=== PATIENT | female | born 1960 | race Caucasian/White ===

== ENCOUNTER → 2020-03-27 | Outpatient (CLI) | payer OTHER ==
--- NOTE | 2020-03-28 08:54 | MM ---
Reason for exam: clinical finding. History: Patient is postmenopausal and history of other cancer. Physical Findings: Nurse Summary: 2.5cm nodule in the right breast at 10 o'clock (nurse dw). MG Diagnostic Mammo w CAD ELADIO Bilateral CC, MLO, and XCCL view(s) were taken. There are scattered fibroglandular densities. 2.7 x 2.7 x 2.5cm irregular, high density mass 9 o'clock right breast at the nurse palpated site. These results were verbally communicated with the patient and result sheet given to the patient on 03/27/20. ASSESSMENT: Incomplete: need additional imaging evaluation, BI-RAD 0 RECOMMENDATION: Ultrasound of the right breast.
--- NOTE | 2020-03-28 08:57 | USB ---
Reason for exam: additional evaluation requested from abnormal screening. History: Patient is postmenopausal and history of other cancer. US Breast RT Right complete breast ultrasound includes all four quadrants, the retroareolar region and axilla. Finding demonstrates a 2.9 x 1.9 x 2.3cm angular, irregular, solid lesion with echogenic halo at 9 o'clock, no other solid or cystic lesion. No axillary lymphadenopathy. These results were verbally communicated with the patient and result sheet given to the patient on 03/27/20. ASSESSMENT: Highly suggestive of malignancy, BI-RAD 5 RECOMMENDATION: Surgical consultation and ultrasound core biopsy of the right breast. Called Dr. Underwood's office with mammographic findings and has scheduled an appointment for the patient for 03/31/20 at 12:[address] Roberts. Biopsy scheduled for 03/31/20 at 8:00. PRELIMINARY REPORT CALLED AND FAXED TO DR. ROBERTS ON 03/28/20.
== END | disposition home or self-care (01) ==
LOC: RADMAMWWP 08:39
PROVIDERS: ATTEND Student in an Organized Health Care Education/Training Program
DX: D48.61 Neoplasm of uncertain behavior of right breast (principal); R92.8 Other abnormal and inconclusive findings on diagnostic imaging of breast
CPT/HCPCS: 77066

== ENCOUNTER 2020-04-02 21:05 | Inpatient (IN) | payer OTHER ==
--- NOTE | 2020-04-02 21:38 | ED ---
General Adult HPI - General Chief complaint: Shortness of Breath Stated complaint: SOB,vomiting Time Seen by Provider: 04/02/20 21:18 Source: patient Mode of arrival: ambulatory Limitations: no limitations - History of Present Illness Initial comments: Dictation was produced using [employer] dictation software. please excuse any grammatical, word or spelling errors. This patient was cared for during a federal and state declared state of emergency secondary to Covid 19 Chief Complaint: 59-year-old female with currently being worked up for possible breast cancer and lung cancer presents with shortness of breath. History of Present Illness: Patient's 59-year-old female presents today with shortness of breath. Patient states her symptoms began acutely last week. Patient states her symptoms have been getting worse. Patient states she has redness of breath is especially worse with exertion. She usually very active. Patient is also short of breath at rest. Patient has any pain complaints. Denies any lower extremity swelling or pain. Patient denies any history of blood clots. Patient does not have a history of heart failure. She does however have a history of coronary artery disease. Denies any fever, chills or night sweats patient does have a mild dry nonproductive cough. She was seen at [facility] where she had a CT test performed. To their knowledge the abnormalities that was seen was that she did have some nodules noted on the right lung. The ROS documented in this emergency department record has been reviewed and confirmed by me. Those systems with pertinent positive or negative responses have been documented in the HPI. All other systems are other negative and/or noncontributory. PHYSICAL EXAM: General Impression: Alert and oriented x3, not in acute distress HEENT: Normocephalic atraumatic, extra-ocular movements intact, pupils equal and reactive to light bilaterally, mucous membranes moist. Cardiovascular: Heart regular rate and rhythm Chest: Diminished right lung sounds Abdomen: abdomen soft, non-tender, non-distended, no organomegaly Musculoskeletal: Pulses present and equal in all extremities, no peripheral edema Motor: no focal deficits noted Neurological: CN II-XII grossly intact, no focal motor or sensory deficits noted Skin: Intact with no visualized rashes Psych: Normal affect and mood ED course: 59-year-old female with active evaluation of possible lung cancer presents with acute dyspnea for 7 days. Sans upon arrival shows 94% on room air, rest of vital signs within acceptable limits. EKG does not show sinus tachycardia or any abnormalities. CT angios the chest was obtained read demonstrating multiple pulmonary masses. Laboratory evaluation obtained. Leukocytosis of 18.6. Coag panel unremarkable. Patient has elevated d-dimer 1.14. Rest of labs unremarkable. Troponin is negative. There is no evidence of pulmonary embolism. There does appear to be some infiltrates concerning for pneumonia. Patient's breathing difficulties are likely multifactorial. Patient will be treated with antibiotics for community acquired pneumonia. Patient be admitted with consultation to pulmonology and oncology. EKG interpretation: Ventricular rate a, normal sinus rhythm, KS interval 156, QRS 70, QTC 406. No KS prolongation, no QTC prolongation, no ST or T-wave changes noted. No old EKG for comparison Overall, this EKG is unremarkable - Related Data Home Medications Medication Instructions Recorded Confirmed Aspirin 81 mg PO DAILY 03/27/20 03/27/20 Atorvastatin [Lipitor] 40 mg PO DAILY 03/27/20 03/27/20 Lisinopril-Hctz 20-25 mg 1 each PO DAILY 03/27/20 03/27/20 [Zestoretic 20-25] Allergies Allergy/AdvReac Type Severity Reaction Status Date / Time No Known Allergies Allergy Verified 03/27/20 10:21 Review of Systems ROS Statement: Those systems with pertinent positive or pertinent negative responses have been documented in the HPI. ROS Other: All systems not noted in ROS Statement are negative. 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 History of Any Multi-Drug Resistant Organisms: None Reported Additional Past Surgical History / Comment(s): tonsils Past Psychological History: No Psychological Hx Reported Smoking Status: Former smoker Past Alcohol Use History: None Reported Past Drug Use History: None Reported General Exam Limitations: no limitations Course Vital Signs 04/02/20 04/02/20 21:25 21:29 Temperature 98.7 F Pulse Rate 89 Respiratory 24 24 Rate Blood Pressure 150/84 O2 Sat by Pulse 94 L Oximetry Medical Decision Making - Lab Data Result diagrams: 04/02/20 21:30 04/02/20 21:30 Lab Results 04/02/20 04/02/20 04/02/20 Range/Units 21:30 21:30 21:30 WBC 18.6 H (3.8-10.6) k/uL RBC 4.01 (3.80-5.40) m/uL Hgb 11.7 (11.4-16.0) gm/dL Hct 36.6 (34.0-46.0) % MCV 91.3 (80.0-100.0) fL MCH 29.3 (25.0-35.0) pg MCHC 32.1 (31.0-37.0) g/dL RDW 12.9 (11.5-15.5) % Plt Count 551 H (150-450) k/uL Neutrophils % 81 % Lymphocytes % 11 % Monocytes % 5 % Eosinophils % 2 % Basophils % 0 % Neutrophils # 15.1 H (1.3-7.7) k/uL Lymphocytes # 2.1 (1.0-4.8) k/uL Monocytes # 1.0 (0-1.0) k/uL Eosinophils # 0.4 (0-0.7) k/uL Basophils # 0.1 (0-0.2) k/uL PT (9.0-12.0) sec INR (<1.2) APTT (22.0-30.0) sec D-Dimer (<0.60) mg/L FEU Sodium 136 L (137-145) mmol/L Potassium 4.5 (3.5-5.1) mmol/L Chloride 100 (98-107) mmol/L Carbon Dioxide 23 (22-30) mmol/L Anion Gap 13 mmol/L BUN 15 (7-17) mg/dL Creatinine 0.70 (0.52-1.04) mg/dL Est GFR (CKD-EPI)AfAm >90 (>60 ml/min/1.73 sqM) Est GFR (CKD-EPI)NonAf >90 (>60 ml/min/1.73 sqM) Glucose 113 H (74-99) mg/dL Calcium 9.8 (8.4-10.2) mg/dL Troponin I <0.012 (0.000-0.034) ng/mL 04/02/20 Range/Units 21:30 WBC (3.8-10.6) k/uL RBC (3.80-5.40) m/uL Hgb (11.4-16.0) gm/dL Hct (34.0-46.0) % MCV (80.0-100.0) fL MCH (25.0-35.0) pg MCHC (31.0-37.0) g/dL RDW (11.5-15.5) % Plt Count (150-450) k/uL Neutrophils % % Lymphocytes % % Monocytes % % Eosinophils % % Basophils % % Neutrophils # (1.3-7.7) k/uL Lymphocytes # (1.0-4.8) k/uL Monocytes # (0-1.0) k/uL Eosinophils # (0-0.7) k/uL Basophils # (0-0.2) k/uL PT 10.3 (9.0-12.0) sec INR 1.0 (<1.2) APTT 23.7 (22.0-30.0) sec D-Dimer 1.14 H (<0.60) mg/L FEU Sodium (137-145) mmol/L Potassium (3.5-5.1) mmol/L Chloride (98-107) mmol/L Carbon Dioxide (22-30) mmol/L Anion Gap mmol/L BUN (7-17) mg/dL Creatinine (0.52-1.04) mg/dL Est GFR (CKD-EPI)AfAm (>60 ml/min/1.73 sqM) Est GFR (CKD-EPI)NonAf (>60 ml/min/1.73 sqM) Glucose (74-99) mg/dL Calcium (8.4-10.2) mg/dL Troponin I (0.000-0.034) ng/mL Disposition Clinical Impression: Pneumonia, Lung metastasis Disposition: ADMITTED IP TO THIS HOSP Condition: Fair Referrals: Andres Underwood [Primary Care Provider] - 1-2 days Decision Time: 22:59
[2020-04-02 21:45] LABS: Basophils # (A) 0.1 k/uL (0-0.2); Basophils % (A) 0 %; Eosinophils # (A) 0.4 k/uL (0-0.7); Eosinophils % (A) 2 %; HCT 36.6 % (34.0-46.0); HGB 11.7 gm/dL (11.4-16.0); Lymphocytes # (A) 2.1 k/uL (1.0-4.8); Lymphocytes % (A) 11 %; MCH 29.3 pg (25.0-35.0); MCHC 32.1 g/dL (31.0-37.0); MCV 91.3 fL (80.0-100.0); Mean Platelet Volume 7.2; Monocytes % (A) 5 %; Neutrophils # (A) 15.1 k/uL (1.3-7.7); Neutrophils % (A) 81 %; Platelet Count 551 k/uL (150-450); RBC 4.01 m/uL (3.80-5.40); RDW 12.9 % (11.5-15.5); WBC 18.6 k/uL (3.8-10.6)
--- NOTE | 2020-04-02 21:48 | XR ---
EXAMINATION TYPE: XR chest 2V DATE OF EXAM: 04/02/2020 COMPARISON: NONE HISTORY: Recently diagnosed with metastatic breast cancer. Dyspnea for one week with vomiting. TECHNIQUE: Frontal and lateral views of the chest are obtained. FINDINGS: There is some reticular interstitial changes bilaterally with multifocal bilateral areas o f nodules and masses. There is additional suspicious opacity right midlung silhouetting major fissure on lateral view. No pleural effusion or pneumothorax noted bilaterally. The cardiac silhouette size is within normal limits. Overlying bra strap. The osseous structures are intact. IMPRESSION: Confirmation of known bilateral metastatic disease to the lungs with anterior inferior r ight upper lobe acute infiltrate felt present.
[2020-04-02 21:53] LABS: African American GFR (CKD) >90 (>60 ml/min/1.73 sqM); Anion Gap 13 mmol/L; Blood Urea Nitrogen 15 mg/dL (7-17); Calcium 9.8 mg/dL (8.4-10.2); Carbon Dioxide 23 mmol/L (22-30); Chloride 100 mmol/L (98-107); Glucose 113 mg/dL (74-99); Non-African American GFR(CKD) >90 (>60 ml/min/1.73 sqM); Potassium 4.5 mmol/L (3.5-5.1); Sodium 136 mmol/L (137-145)
[2020-04-02 22:06] LABS: Partial Thromboplastin Time 23.7 sec (22.0-30.0); Prothrombin Time 10.3 sec (9.0-12.0)
[2020-04-02 22:15] LABS: D-Dimer 1.14 mg/L FEU (<0.60)
[2020-04-02] MEDS ORDERED: AZITHROMYCIN 500 MG in SODIUM CHLORIDE 0.9% 250 ML IVPB STA (22:44)
[2020-04-02] MEDS ORDERED: cefTRIAXone IN SWFI 1,000 MG/10 ML SYRINGE IVP STA (22:44)
--- NOTE | 2020-04-02 22:55 | CT ---
EXAMINATION TYPE: CT angio chest DATE OF EXAM: 04/02/2020 COMPARISON: None HISTORY: SOB CT DLP: 238.1 mGycm Automated exposure control for dose reduction was used. CONTRAST: Performed with IV Contrast, patient injected with 100 mL of Isovue 370. There are 3-D post processed images. Images were obtained from the thoracic inlet to the diaphragm wi th IV contrast. There are numerous soft tissue noncalcified masses throughout the lungs. Masses measure up to 2.5 cm. There is extensive mediastinal adenopathy with large masslike lymph nodes that measure up to 4 x 2.5 cm. There are multiple enlarged lymph nodes up to 2 cm. There is no pericardial effusion. Heart size is normal. There is no pleural effusion. There is some pleural thickening and infiltrate and atelect asis left posterior lung base. There is normal contrast opacification of the pulmonary arteries. There are no filling defects. There is some peripheral airspace consolidation in the anterior aspect of the right upper lobe. Thoracic spine is intact. There is no compression fracture. The ribs appear intact. There is a irregular 2.5 cm mass in the lateral aspect of the right breast. There are multiple hypodense rounded masses in the liver that measure up to 2 cm. There is no adrenal mass. The visualized kidneys appear to show multiple solid renal masses. These appear in the cortex and measure up to 3 cm. Kidneys not completely evaluated. There is enlarged left side abdominal para- aortic lymph node that measures 2.8 cm. IMPRESSION: No evidence of pulmonary embolism. Extensive pulmonary masses consistent with metastatic disease. Pramod ateral pulmonary airspace infiltrates and consolidation. Hypodense liver lesions consistent with metastatic disease. Extensive mediastinal and bronchial adeno armani. Abdominal para-aortic lymphadenopathy. Multiple renal masses consistent with malignancy. Right breast mass consistent with tumor.
[2020-04-02] MEDS ORDERED: NALOXONE 0.4 MG/ML 1 ML VIAL IV PRN (22:59)
[2020-04-02] MEDS ORDERED: ACETAMINOPHEN TAB 325 MG TAB PO PRN (22:59)
[2020-04-03] MEDS: SODIUM CHLORIDE 0.9% 1,000 ML IV SCH (01:17)
[2020-04-03] MEDS: ONDANSETRON 4 MG/2 ML VIAL IVP PRN ×2 (05:48→22:38)
[2020-04-03] MEDS ORDERED: IPRATROPIUM-ALBUTEROL 3 ML NEB INHALATION PRN (13:03)
[2020-04-03 13:35] LABS: Albumin 3.3 g/dL (3.5-5.0); Bilirubin, Delta 0.1 mg/dL (0.0-0.2); Bilirubin,Unconjugated 0.3 mg/dL (0.0-1.1); Total Bilirubin 0.4 mg/dL (0.2-1.3); Total Protein 6.6 g/dL (6.3-8.2)
[2020-04-03] MEDS ORDERED: HYDROmorphone 0.5 MG/0.5 ML SYRINGE IVP STA (14:15)
--- NOTE | 2020-04-03 14:32 | P.CNPUL ---
History of Present Illness Consult date: 04/03/20 Requesting physician: Krishna Stein Reason for consult: dyspnea, cough, lung mass, abnormal CXR/CT Chief complaint: Dyspnea, cough History of present illness: 59-year-old white female patient of Dr. Underwood, with past medical history of hypertension, previous history of myocardial infarction, smoker, quit 3 weeks ago, did smoke less than a pack a day for 20 years, who has recently discovered right breast lesion and was scheduled for needle biopsy of right breast mass this week on . Patient comes into the hospital on 04/02/2020 with complaints of increasing shortness of breath, cough with production of clear phlegm, and right upper chest discomfort with deep breathing and coughing. Her shortness of breath is exacerbated with exertion. Denies any hemoptysis. Denies any fever, chills or night sweats. She was seen at [facility] initially where she had a CT of the chest completed. Patient was transferred to [facility] for further treatment, CTA chest showed no evidence of pulmonary embolism, did show extensive pulmonary masses consistent with metastatic disease and bilateral pulmonary airspace infiltrates and consolidation. There were also hypodense liver lesions consistent with metastatic disease, abdominal para-aortic lymphadenopathy, multiple renal masses and a right breast mass consistent with tumor. Initial lab work showed leukocytosis with white blood cell count of 18.6, d-dimer 1.14, troponin was negative. Electrolytes and renal profile were unremarkable. Patient was started on azithromycin and Rocephin, IV steroids and breathing treatments. She is resting comfortably in bed, mildly short of breath with conversation, but no acute distress, remains on 2 L of oxygen the pulse ox of 96%, she is still coughing up some clear-colored phlegm. Review of Systems All systems: negative Constitutional: Denies chills, Denies fever Eyes: denies blurred vision, denies pain Ears, nose, mouth and throat: Denies headache, Denies sore throat Cardiovascular: Reports chest pain, Denies shortness of breath Respiratory: Reports congestion, Reports cough with sputum, Reports dyspnea, Denies cough Gastrointestinal: Denies abdominal pain, Denies diarrhea, Denies nausea, Denies vomiting Genitourinary: Denies dysuria, Denies hematuria Musculoskeletal: Denies myalgias Integumentary: Denies pruritus, Denies rash Neurological: Denies numbness, Denies weakness Psychiatric: Denies anxiety, Denies depression Endocrine: Denies fatigue, Denies weight change Past Medical History Past Medical History: Hyperlipidemia, Hypertension Additional Past Medical History / Comment(s): 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 History of Any Multi-Drug Resistant Organisms: None Reported Additional Past Surgical History / Comment(s): tonsils, ovaris Past Anesthesia/Blood Transfusion Reactions: No Reported Reaction Past Psychological History: No Psychological Hx Reported Smoking Status: Former smoker Past Alcohol Use History: None Reported Past Drug Use History: None Reported - Past Family History Father Family Medical History: Myocardial Infarction ([place]), Renal Disease Mother Family Medical History: Diabetes Mellitus Medications and Allergies Home Medications Medication Instructions Recorded Confirmed Type Aspirin 81 mg PO DAILY 03/27/20 04/02/20 History Atorvastatin [Lipitor] 40 mg PO DAILY 03/27/20 04/02/20 History Lisinopril-Hctz 20-25 mg 1 tab PO DAILY 03/27/20 04/02/20 History [Zestoretic 20-25] Albuterol Sulfate [Albuterol 2 puff PO RT-Q4H PRN 04/02/20 04/02/20 History Sulfate Hfa] Ondansetron HCl [Zofran] 4 mg PO Q4H PRN 04/02/20 04/02/20 History Allergies Allergy/AdvReac Type Severity Reaction Status Date / Time No Known Allergies Allergy Verified 04/02/20 23:22 Physical Exam Vitals: Vital Signs Temp Pulse Pulse Resp BP BP Pulse Ox 04/03/20 08:00 77 18 04/03/20 07:00 98.5 F 77 18 114/72 96 04/03/20 00:05 98.4 F 84 16 122/81 98 04/02/20 22:57 84 16 132/71 97 04/02/20 21:29 24 04/02/20 21:25 98.7 F 89 24 150/84 94 L Intake and Output 04/02/20 04/03/20 04/03/20 22:59 06:59 14:59 Intake Total 120 Output Total 350 Balance -230 Intake: Intake, IV Titration 60 Amount Sodium Chloride 0.9% 1, 60 000 ml @ 20 mls/hr IV . Q24H MISTY Rx#:[id number] Oral 60 Output: Urine 350 Other: # Voids 2 Weight 63.503 kg 63.503 kg GENERAL EXAM: Alert, pleasant, 51-year-old white female, mildly short of breath with conversation but no acute distress, currently on 2 L of oxygen with a pulse ox of 96%, comfortable in no apparent distress. HEAD: Normocephalic/atraumatic. EYES: Normal reaction of pupils, equal size. Conjunctiva pink, sclera white. NOSE: Clear with pink turbinates. THROAT: No erythema or exudates. NECK: No masses, no JVD, no thyroid enlargement, no adenopathy. CHEST: No chest wall deformity. Symmetrical expansion. LUNGS: Equal air entry with diffuse wheezes CVS: Regular rate and rhythm, normal S1 and S2, no gallops, no murmurs, no rubs ABDOMEN: Soft, nontender. No hepatosplenomegaly, normal bowel sounds, no guarding or rigidity. EXTREMITIES: No clubbing, no edema, no cyanosis, 2+ pulses and upper and lower extremities. MUSCULOSKELETAL: Muscle strength and tone normal. SPINE: No scoliosis or deformity SKIN: No rashes CENTRAL NERVOUS SYSTEM: Alert and oriented -3. No focal deficits, tone is normal in all 4 extremities. PSYCHIATRIC: Alert and oriented -3. Appropriate affect. Intact judgment and insight. Results - Laboratory Findings CBC and BMP: 04/02/20 21:30 04/02/20 21:30 PT/INR, D-dimer PT 10.3 sec (9.0-12.0) 04/02/20 21:30 INR 1.0 (<1.2) 04/02/20 21:30 D-Dimer 1.14 mg/L FEU (<0.60) H 04/02/20 21:30 Abnormal lab findings: Abnormal Labs 04/02/20 04/02/20 04/02/20 21:30 21:30 21:30 WBC 18.6 H Plt Count 551 H Neutrophils # 15.1 H D-Dimer 1.14 H Sodium 136 L Glucose 113 H AST ALT Albumin 04/03/20 13:03 WBC Plt Count Neutrophils # D-Dimer Sodium Glucose AST 42 H ALT 48 H Albumin 3.3 L - Diagnostic Findings Chest x-ray: report reviewed, image reviewed CT scan - chest: report reviewed, image reviewed Additional studies: EKG reviewed Assessment and Plan Plan: Assessment: #1. Dyspnea, multifactorial, related to possibility of metastatic breast cancer, acute exacerbation of COPD and possibility of pneumonia, possibly community-acquired #2. Suspect metastatic breast cancer, needle biopsy of the right breast mass is pending. CTA chest showed extensive pulmonary masses, hypodense liver lesions, mediastinal and bronchial adenopathy, abdominal para-aortic lymphadenopathy, and multiple renal masses consistent with malignancy #3. Ex-smoker, in remission for last 3 weeks, smoked less than a pack a day for 20 years #4. Hypertension #5. History of previous myocardial infarction #6. History of oophorectomy in the remote past #7. Family history of breast cancer in sister Plan: We will consult interventional radiology for right breast mass the needle biopsy. Will continue current antibiotic coverage with azithromycin and Rocephin, continue IV steroids, will add albuterol, obtain procalcitonin level, medical oncology has been consulted. I performed a history & physical examination of the patient and discussed their management with my nurse practitioner, Linsey Jimenez. I reviewed the nurse practitioner's note and agree with the documented findings and plan of care. Lung sounds are positive for diffuse wheezes throughout the lung edmondson. The findings and the impression was discussed with the patient. I attest to the documentation by the nurse practitioner. Time with Patient: Greater than 30
[2020-04-03] MEDS ORDERED: ALPRAZolam 0.25 MG TAB PO PRN (15:31)
[2020-04-03] MEDS ORDERED: TEMAZEPAM 15 MG CAP PO PRN (15:31)
--- NOTE | 2020-04-03 15:42 | MR ---
EXAMINATION TYPE: MR brain wo/w con DATE OF EXAM: 04/03/2020 COMPARISON: None HISTORY: Confusion, evaluate for metastatic disease CONTRAST: Performed utilizing 6.5 mL intravenous Gadavist gadolinium contrast. TECHNIQUE: Multiplanar, multiecho imaging on a 3.0 Alexia magnet is performed through the brain. Stud y is performed within 24 hours of arrival to the hospital. The craniovertebral junction is normal. The pituitary is normal. Diffusion-weighted imaging is performed. Some punctate areas of hyperintensity are within the cortex of the right occipital lobe. Following contrast administration, there are enhancing lesions within t he right occipital lobe. These areas are hyperintense on inversion recovery weighted sequences. 2 adj acent or possibly contiguous metastatic lesions are suspected measuring 1.4 x 1.4 x 2.[address] on the adjacent brain however is not evident. No significant edema is adjacent. Additional suspicious areas of enhancement are not evident. There is some mild scattered subcortical white matter changes in periventricular white matter changes more likely on the basis of chronic white matter ischemic change. Ventricles and sulci are appropriate for the patient age. IMPRESSIONS: 1. Findings suggestive for enhancing metastasis in the right inferior medial occipital lobe. 2. Some additional periventricular white matter ischemic type changes are. A Rolla level critical message alert has been initiated for José Miguel Pineda MD~[id number] via the [employer] Critical Results System on 04/03/2020 3:39 PM. This message alert has been sent to José Miguel Pineda MD~M [id number] via the preferences provided by the clinician for the receipt of Radiology Critical Findings. [facility] ID [id number].
--- NOTE | 2020-04-03 15:55 | USB ---
ULTRASOUND GUIDED RIGHT BREAST CORE BIOPSY: CLINICAL HISTORY: Abnormal ultrasound right breast FINDINGS: The procedure was explained to the patient. The risks, complications, benefits and alternatives were discussed and any questions were answered. Informed consent was obtained. Patient was placed supine on the ultrasound table and prepped and draped in the usual sterile fashion. Utilizing a 18 gauge needle, 4 passes were made into the question right breast mass. Surgical clip placed post procedure. Patient was stable throughout the procedure. Pathology is pending. All elements of maximal barrier technique were utilized. IMPRESSION: 1. Successful ultrasound guided core biopsy right breast mass. Pathology Results: Malignant A. RIGHT BREAST MASS, CORE BIOPSY: Invasive moderately ductal carcinoma (Grade 2). See Surgical Pathology Cancer Case Summary. B. ABDOMINAL MASS, CORE BIOPSY: Metastatic carcinoma consistent with ductal breast primary. See comment. Recommendation Surgical consult of the right breast. MTDD
--- NOTE | 2020-04-03 15:58 | US ---
ULTRASOUND GUIDED SUBCUTANEOUS RIGHT ANTERIOR ABDOMINAL WALL MASS core BIOPSY: CLINICAL HISTORY: Right breast mass with subcutaneous mass anterior abdominal wall FINDINGS: The procedure was explained to the patient. The risks, complications, benefits and alternatives were discussed and any questions were answered. Informed consent was obtained. Patient was placed supin e on the ultrasound table and prepped and draped in the usual sterile fashion. Utilizing a 18 gauge needle, 4 passes were made into the subcutaneous mass adjacent to the right anterior abdominal wall. Patient was stable throughout the procedure. Pathology is pending. All elements of maximal barrier technique were utilized. IMPRESSION: 1. Successful ultrasound guided core biopsy of the requested subcutaneous mass in the upper abdomen.
--- NOTE | 2020-04-03 16:37 | P.CONS ---
History of Present Illness - Reason for Consult Consult date: 04/03/20 Metastatic Disease Requesting physician: Krishna Stein - Chief Complaint Shortness of Breath - History of Present Illness Mrs. Reich is a 59 year old female patient who presented to [facility] room from first undergoing evaluation at [facility], with complaints of shortness of breath. A CT Chest was performed at outside hospital which had apparently revealed Pulmonary nodules. She has been noticing increased shortness of breath over the past few months but recently has worsened to even at rest, whereas previously only noticeable with exertion. On presentation she was hypoxic requiring nasal canula oxygen supplementation. She does have a long standing history of tobacco abuse, per patient quit smoking three weeks ago. Father had prostate cancer. Sister had an early stage Breast cancer although in her early 50s from end stage COPD. Ms. Reich is currently comfortable in bed during exam, denies pain. She does have mild increased respiratory effort. She admits to recent vision changes. She does not respond appropriately to news of hearing you likely have a metastatic cancer. Her CTA revealed bilateral adenopathy, pulmonary nodules, abnormality in liver and right breast mass. Because of these finding medical oncology was asked to further evaluate. We have discussed the case with interventional radiology and pulmonology. IR is planning on breast biopsy today. They will need to wait for a biopsy of the lung or liver lesion because of the prescribed aspirin prior to admission. ALthough in talking with daughter she has never taken the baby aspirin, even though she was prescribed. An MRI of the Brain has also been ordered for full work-up. 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 History of Any Multi-Drug Resistant Organisms: None Reported Additional Past Surgical History / Comment(s): tonsils, ovaris Past Anesthesia/Blood Transfusion Reactions: No Reported Reaction Past Psychological History: No Psychological Hx Reported Smoking Status: Former smoker Past Alcohol Use History: None Reported Past Drug Use History: None Reported - Past Family History Father Family Medical History: Myocardial Infarction ([place]), Renal Disease Mother Family Medical History: Diabetes Mellitus Medications and Allergies Home Medications Medication Instructions Recorded Confirmed Type Aspirin 81 mg PO DAILY 03/27/20 04/02/20 History Atorvastatin [Lipitor] 40 mg PO DAILY 03/27/20 04/02/20 History Lisinopril-Hctz 20-25 mg 1 tab PO DAILY 03/27/20 04/02/20 History [Zestoretic 20-25] Albuterol Sulfate [Albuterol 2 puff PO RT-Q4H PRN 04/02/20 04/02/20 History Sulfate Hfa] Ondansetron HCl [Zofran] 4 mg PO Q4H PRN 04/02/20 04/02/20 History Allergies Allergy/AdvReac Type Severity Reaction Status Date / Time No Known Allergies Allergy Verified 04/02/20 23:22 Physical Exam Vitals: Vital Signs Temp Pulse Pulse Resp BP BP Pulse Ox 04/03/20 14:45 85 18 128/78 93 L 04/03/20 14:30 88 18 136/82 97 04/03/20 14:00 80 18 124/74 96 04/03/20 08:00 77 18 04/03/20 07:00 98.5 F 77 18 114/72 96 04/03/20 00:05 98.4 F 84 16 122/81 98 04/02/20 22:57 84 16 132/71 97 04/02/20 21:29 24 04/02/20 21:25 98.7 F 89 24 150/84 94 L Intake and Output 04/03/20 04/03/20 04/03/20 06:59 14:59 22:59 Intake Total 120 Output Total 350 Balance -230 Intake: Intake, IV Titration 60 Amount Sodium Chloride 0.9% 1, 60 000 ml @ 20 mls/hr IV . Q24H [facility] Rx#:[id number] Oral 60 Output: Urine 350 Other: # Voids 2 Weight 63.503 kg Gen: Alert and oriented, mild distress, inappropriate responses to discussion that may reflect the future need of re-education Head: NCAT Neck: Supple, Trachea midline Heart: Tachy, Reg Lungs: Diffuse coarse breath sounds: Increased respiratory effort Lymph: small palpable right axilla, no other palpable adenopathy on exam Abdomen: Soft tissue superficial masses, sSoft, Non-distended Breast: Palpable right outer breast mass Ext: No edema, Peripheral pulses present Psych: Calm and unaffected by hospitalization, wants to go home. Results CBC & Chem 7: 04/02/20 21:30 04/02/20 21:30 Labs: Abnormal Lab Results - Last 24 Hours (Table) 04/02/20 04/02/20 04/02/20 Range/Units 21:30 21:30 21:30 WBC 18.6 H (3.8-10.6) k/uL Plt Count 551 H (150-450) k/uL Neutrophils # 15.1 H (1.3-7.7) k/uL D-Dimer 1.14 H (<0.60) mg/L FEU Sodium 136 L (137-145) mmol/L Glucose 113 H (74-99) mg/dL AST (14-36) U/L ALT (4-34) U/L Albumin (3.5-5.0) g/dL 04/03/20 Range/Units 13:03 WBC (3.8-10.6) k/uL Plt Count (150-450) k/uL Neutrophils # (1.3-7.7) k/uL D-Dimer (<0.60) mg/L FEU Sodium (137-145) mmol/L Glucose (74-99) mg/dL AST 42 H (14-36) U/L ALT 48 H (4-34) U/L Albumin 3.3 L (3.5-5.0) g/dL Chest x-ray: report reviewed CT scan - chest: report reviewed Assessment and Plan (1) Breast mass, right Current Visit: Yes Status: Acute Code(s): N63.10 - UNSPECIFIED LUMP IN THE RIGHT BREAST, UNSPECIFIED QUADRANT SNOMED Code(s): 84544871 (2) Liver lesion Current Visit: Yes Status: Acute Code(s): K76.9 - LIVER DISEASE, UNSPECIFIED SNOMED Code(s): 071108606 (3) Bilateral kidney masses Current Visit: Yes Status: Acute Code(s): N28.89 - OTHER SPECIFIED DISORDERS OF KIDNEY AND URETER SNOMED Code(s): 228172646 (4) Leukocytosis Current Visit: Yes Status: Acute Code(s): D72.829 - ELEVATED WHITE BLOOD CELL COUNT, UNSPECIFIED SNOMED Code(s): 304537537 (5) Thrombocytosis Current Visit: Yes Status: Acute Code(s): D47.3 - ESSENTIAL (HEMORRHAGIC) THROMBOCYTHEMIA SNOMED Code(s): 3453470 (6) Lung metastasis Current Visit: Yes Status: Acute Code(s): C78.00 - SECONDARY MALIGNANT NEOPLASM OF UNSPECIFIED LUNG SNOMED Code(s): 14328553 (7) Pneumonia Current Visit: Yes Status: Acute Code(s): J18.9 - PNEUMONIA, UNSPECIFIED ORGANISM SNOMED Code(s): 743871916 Plan: Assessment and Recommendations: 1. Right Breast Mass: - Originally found on Breast ultrasound 03/27/20 - Palpable outer mass 2. Bilateral Pulmonary nodules: - CTA revealed numerous soft tissues through lungs measuring up to 2.5cm - Extensive mediastinal adenopathy bilaterally measuring up to 4x2.5cm 3. Hypodense Lesion in Liver - 2cm 4. Bilateral Solid Masses in Kidneys 5. Para-aortic left side abdominal lymph node noted 6. Leukocytosis: Neutrophilia 7. Mild Thrombocytosis: Reactive 8. Bilateral infiltrates: Suspicious for secondary pneumonia PLan: - The above picture is concerning for an extensive metastatic cancer. Likely Breast primary although with the extensive picture will need to obtain tissue biopsy from metastatic lesions as well as the ordered breast biopsy. We have asked for liver or lung biopsy from IR, patient did have aspirin on medication list but patient and daughter both state she does not take it and never has. - MRI of the brain has been ordered for vision changes and full initial staging of metastatic picture - Breast Cancer Tumor Markers ordered - Will Check Liver Function - Continue Antibiotics Thank you for allowing us to participate in the care of this patient, we will follow along with you I also spoke to patients daughter Sheri on the telephone to assist in history and update on plan for intial staging and awaiting path. Greater than 30 minutes counseling and cordinating care
[2020-04-03] MEDS: ALBUTEROL NEBULIZED 2.5 MG/3 ML INHALATION SCH ×2 (16:50→19:58)
--- NOTE | 2020-04-03 17:05 | HP ---
HISTORY AND PHYSICAL DATE OF SERVICE: 04/03/2020 CHIEF COMPLAINT: Shortness of breath and cough. HISTORY OF PRESENT ILLNESS: This 59-year-old woman with a past medical history of multiple medical problems, including hypertension and hyperlipidemia, was recently being followed by Dr. higginbotham in the outpatient setting. She was complaining of shortness of breath and cough over the last several weeks. Patient apparently was admitted to [facility]. Because of lack of improvement, the patient came to [facility] and was admitted for further evaluation and treatment. A chest x-ray which was done in the ER which I personally reviewed showed significant bilateral metastatic lesions as well as right upper lobe and also right-sided infiltrates suggestive of pneumonia as well. The CT scan also confirmed multiple jhoana lesions. The patient was also noted to have a right breast lesion and had an ultrasound biopsy recently in the outpatient setting. There is no history of any fever, rigor or chills. No history of headache, loss of consciousness, seizures. PAST MEDICAL HISTORY: History of hypertension, hyperlipidemia, history of breast lesion, as mentioned earlier, history of smoking. MEDICATIONS: 1. Albuterol 2 puffs q.4 p.r.n. 2. Zofran 4 mg q.4 p.r.n. 3. Zestoretic 1 tablet p.o. daily. 4. Lipitor 40 mg daily. 5. Aspirin 81 mg daily. ALLERGIES: NONE. FAMILY HISTORY: History of myocardial infarction and renal disease in the family. SOCIAL HISTORY: Previous history of smoking. No history of alcohol intake. REVIEW OF SYSTEMS: ENT: No diminished hearing. No diminished vision. CARDIOVASCULAR SYSTEM: No angina, palpitations. RESPIRATORY SYSTEM: As mentioned earlier. GI: No nausea, vomiting, diarrhea. : No dysuria or retention. NERVOUS SYSTEM: No numbness, weakness. ALLERGY/IMMUNOLOGY: No asthma, hayfever. MUSCULOSKELETAL: As mentioned earlier. HEMATOLOGY/ONCOLOGY: As mentioned earlier. ENDOCRINE: No history of diabetes, hypothyroidism. CONSTITUTIONAL: As mentioned earlier. DERMATOLOGY: Negative. RHEUMATOLOGY: Negative. PSYCHIATRY: As mentioned earlier. PHYSICAL EXAMINATION: Patient alert and oriented x3. Pulse 85, blood pressure 128/78, respiration 18, temperature 98.5, pulse ox % on 2 L. HEENT: Conjunctivae normal. Oral mucosa moist. NECK: No jugular venous distention. No carotid bruit. No lymph node enlargement. CARDIOVASCULAR SYSTEM: S1, S2 muffled. No S3. No S4. RESPIRATORY SYSTEM: Breath sounds diminished at the bases. A few scattered rhonchi and crackles. Expiratory wheezing also present. ABDOMEN: Soft, non-tender. No mass palpable. LEGS: No edema. No swelling. NERVOUS SYSTEM: Higher functions as mentioned earlier. Moves all 4 limbs. No focal motor or sensory deficit. LYMPHATICS: No lymph node palpable in neck, axillae or groin. SKIN: No ulcer, rash, bleeding. JOINTS: No active deforming arthropathy. EXAMINATION OF RIGHT BREAST: Firm mass present. LABS: WBC 18.6, sodium 136, AST 42 and ALT 48. ASSESSMENT: 1. Right-sided pneumonia, possibly postobstructive, with failure of outpatient treatment with systemic inflammatory response syndrome. 2. Possible right breast cancer with metastases with possibly hepatic metastases as well as renal metastases. 3. Increased white count. 4. Increased platelets. 5. Elevated D-dimer. 6. Hyponatremia. 7. Elevated AST, ALT. 8. Hypertension. 9. Hyperlipidemia. 10.History of nicotine dependence. 11.FULL CODE. RECOMMENDATIONS AND DISCUSSION: In this 59-year-old woman who presented with multiple complex medical issues, we will monitor the patient closely, continue the current medications, continue with symptomatic treatment. I would recommend broad-spectrum IV antibiotic, bronchodilators, empiric steroids and breast biopsy. The CT scan showed hyperdense liver lesions, also. Recommend CT of abdomen and pelvis as well as bone scan. Extensive pulmonary metastatic disease was also noted. Multiple renal metastases also noted. Once again, the prognosis is extremely guarded because of multiple complex medical issues. Further recommendations to follow. A copy of this dictation is being forwarded to , who is the primary physician. See orders for further details. Will continue with DVT prophylaxis as well. MMODL / IJN: [id number] / MTDD
[2020-04-03 17:08] LABS: Glucose,Whole Blood 92 mg/dL (75-99)
[2020-04-03] MEDS: IOPAMIDOL CONTRAST (ORAL USE) VIAL PO PRN ×2 (17:09→18:10)
[2020-04-03] MEDS: AZITHROMYCIN 500 MG TAB PO SCH (17:09)
[2020-04-03] MEDS: INSULIN ASPART (NovoLOG) 100 UNIT/ML VIAL SQ SCH ×2 (17:10→20:17)
[2020-04-03] MEDS: HEPARIN SODIUM,PORCINE 5,000 UNIT/ML 1 ML VIAL SQ SCH (17:14)
[2020-04-03] MEDS ORDERED: methylPREDNISolone SOD SUCCI 125 MG/2 ML VIAL IV SCH (18:00)
--- NOTE | 2020-04-03 19:37 | CT ---
EXAMINATION TYPE: CT abdomen pelvis wo/w con DATE OF EXAM: 04/03/2020 COMPARISON: None HISTORY: mets CT DLP: 1891 mGycm Automated exposure control for dose reduction was used. CONTRAST: Performed with IV Contrast, patient injected with 100 mL of Isovue 300. Images were obtained without and with IV contrast. There is oral contrast. There are numerous rounded noncalcified masses in the visualized lower lung edmondson. These measure up to 2 cm. There is some patchy airspace infiltrate at both lung bases. Heart size is normal. There is no pericardial effusion. There is no pleural effusion. There is some contrast in both kidneys from earlier exam yesterday. There are multiple hypodense liver masses that measure up to 2 cm. There is no evidence of pancreatic mass. Spleen is intact. The stomach has normal size and contour. There are multiple bilateral renal cortical cysts. These measure up to 3 cm. There is 2.6 cm low-dens ity mass posterior left kidney that could be a tumor. There is no hydronephrosis. Ureters are not dil ated. There are enlarged multiple abdominal para-aortic lymph nodes that measure up to 2 cm. There is no evidence of a bowel obstruction. There is no inguinal hernia. Bladder distends smoothly. Uterus i s anteverted. There is no free fluid in the pelvis. There is no evidence of pelvic mass. Appendix is partly filled with air and appears normal. Lumbar vertebra have normal spacing and alignment. Posterior elements are intact. Bony pelvis appears intact. IMPRESSION: Multiple liver masses consistent with metastatic disease. Renal cortical cysts. Low-density area post erior left kidney could be renal tumor. Extensive pulmonary masses consistent with metastatic disease. Bilateral basilar pulmonary infiltrate s. Retroperitoneal lymphadenopathy.
[2020-04-03 19:55] LABS: Glucose,Whole Blood 108 mg/dL (75-99)
[2020-04-03] MEDS: SYMBICORT 160-4.5 MCG INHALER INHALATION SCH (19:58)
[2020-04-04] LABS: Color,Urine Yellow; RBC,Urine 4 /hpf (0-5); Squamous Epithelial Cell,Urine 3 /hpf (0-4); WBC,Urine <1 /hpf (0-5)
[2020-04-04 00:01] LABS: Appearance,Urine Clear (Clear); Bilirubin,Urine Negative (Negative); Blood,Urine Moderate (Negative); Glucose,Urine (UA) Negative (Negative); Ketones,Urine 2+ (Negative); Leukocyte Esterase,Urine Negative (Negative); Nitrite,Urine Negative (Negative); Protein,Urine Negative (Negative); Specific Gravity,Urine 1.005 (1.001-1.035); Urobilinogen,Urine <2.0 mg/dL (<2.0)
[2020-04-04] MEDS: HEPARIN SODIUM,PORCINE 5,000 UNIT/ML 1 ML VIAL SQ SCH ×2 (00:07→08:37)
[2020-04-04] MEDS: DEXAMETHASONE SOD PHOSPHATE 4 MG/ML 1 ML VIAL IV SCH ×3 (00:07→12:39)
[2020-04-04] MEDS: SODIUM CHLORIDE 0.9% 1,000 ML IV SCH (00:09)
[2020-04-04 07:07] LABS: Glucose,Whole Blood 196 mg/dL (75-99)
[2020-04-04] MEDS ORDERED: PANTOPRAZOLE 40 MG TABLET PO SCH (07:30)
[2020-04-04 07:43] LABS: Basophils % (A) 0 %; Eosinophils % (A) 0 %; HGB 11.2 gm/dL (11.4-16.0); Lymphocytes # (A) 1.1 k/uL (1.0-4.8); Lymphocytes % (A) 7 %; MCH 28.9 pg (25.0-35.0); MCHC 31.3 g/dL (31.0-37.0); MCV 92.3 fL (80.0-100.0); Mean Platelet Volume 7.1; Monocytes # (A) 0.3 k/uL (0-1.0); Monocytes % (A) 2 %; Neutrophils # (A) 14.9 k/uL (1.3-7.7); Neutrophils % (A) 91 %; Platelet Count 561 k/uL (150-450); RBC 3.89 m/uL (3.80-5.40); RDW 12.9 % (11.5-15.5); WBC 16.4 k/uL (3.8-10.6)
[2020-04-04 07:48] LABS: Partial Thromboplastin Time 23.1 sec (22.0-30.0); Prothrombin Time 10.3 sec (9.0-12.0)
[2020-04-04 07:53] LABS: ALT 41 U/L (4-34); AST 35 U/L (14-36); African American GFR (CKD) >90 (>60 ml/min/1.73 sqM); Albumin 3.5 g/dL (3.5-5.0); Alkaline Phosphatase 133 U/L (38-126); Anion Gap 13 mmol/L; Blood Urea Nitrogen 16 mg/dL (7-17); Carbon Dioxide 22 mmol/L (22-30); Chloride 101 mmol/L (98-107); Glucose 181 mg/dL (74-99); LDH 616 U/L (313-618); Non-African American GFR(CKD) 79 (>60 ml/min/1.73 sqM); Potassium 4.7 mmol/L (3.5-5.1); Sodium 136 mmol/L (137-145); Total Bilirubin 0.4 mg/dL (0.2-1.3); Total Protein 7.2 g/dL (6.3-8.2)
[2020-04-04] MEDS: SYMBICORT 160-4.5 MCG INHALER INHALATION SCH (07:57)
[2020-04-04] MEDS: ALBUTEROL NEBULIZED 2.5 MG/3 ML INHALATION SCH ×3 (08:10→15:19)
[2020-04-04] MEDS: AZITHROMYCIN 500 MG TAB PO SCH (08:36)
[2020-04-04] MEDS: INSULIN ASPART (NovoLOG) 100 UNIT/ML VIAL SQ SCH ×2 (08:36→12:40)
[2020-04-04] MEDS: ONDANSETRON 4 MG/2 ML VIAL IVP PRN (08:38)
[2020-04-04] MEDS ORDERED: ATORVASTATIN 40 MG TAB PO SCH (09:00)
[2020-04-04] MEDS ORDERED: LISINOPRIL-HCTZ 20-25 MG 1 EACH TAB PO SCH (09:00)
--- NOTE | 2020-04-04 11:31 | P.PN ---
Subjective Progress Note Date: 04/04/20 Principal diagnosis: Shortness of breath, cough, metastatic malignancy 59-year-old white female patient of Dr. Underwood, with past medical history of hypertension, previous history of myocardial infarction, smoker, quit 3 weeks ago, did smoke less than a pack a day for 20 years, who has recently discovered right breast lesion and was scheduled for needle biopsy of right breast mass this week on . Patient comes into the hospital on 04/02/2020 with complaints of increasing shortness of breath, cough with production of clear phlegm, and right upper chest discomfort with deep breathing and coughing. Her shortness of breath is exacerbated with exertion. Denies any hemoptysis. Denies any fever, chills or night sweats. She was seen at [facility] initially where she had a CT of the chest completed. Patient was transferred to [facility] for further treatment, CTA chest showed no evidence of pulmonary embolism, did show extensive pulmonary masses consistent with metastatic disease and bilateral pulmonary airspace infiltrates and consolidation. There were also hypodense liver lesions consistent with metastatic disease, abdominal para-aortic lymphadenopathy, multiple renal masses and a right breast mass consistent with tumor. Initial lab work showed leukocytosis with white blood cell count of 18.6, d-dimer 1.14, troponin was negative. Electrolytes and renal profile were unremarkable. Patient was started on azithromycin and Rocephin, IV steroids and breathing treatments. She is resting comfortably in bed, mildly short of breath with conversation, but no acute distress, remains on 2 L of oxygen the pulse ox of 96%, she is still coughing up some clear-colored phlegm. Objective - Vital Signs Vital signs: Vital Signs Temp 97.5 F L 04/04/20 04:35 Pulse 88 04/04/20 11:21 Resp 16 04/04/20 04:35 BP 123/74 04/04/20 04:35 Pulse Ox 95 04/04/20 04:35 Intake & Output 04/03/20 04/04/20 04/04/20 18:59 06:59 18:59 Intake Total 830 Output Total 350 Balance -350 830 Intake: Intake, IV Titration 290 Amount Sodium Chloride 0.9% 1, 240 000 ml @ 20 mls/hr IV . Q24H [facility] Rx#:[id number] cefTRIAXone 1 gm In 50 Sodium Chloride 0.9% 50 ml @ 100 mls/hr IVPB Q24H [facility] Rx#:[id number] Oral 540 Output: Urine 350 Other: # Voids 2 2 # Bowel Movements 2 - Exam GENERAL EXAM: Alert, pleasant, 51-year-old white female, mildly short of breath with conversation but no acute distress, currently on 2 L of oxygen with a pulse ox of 96%, comfortable in no apparent distress. HEAD: Normocephalic/atraumatic. EYES: Normal reaction of pupils, equal size. Conjunctiva pink, sclera white. NOSE: Clear with pink turbinates. THROAT: No erythema or exudates. NECK: No masses, no JVD, no thyroid enlargement, no adenopathy. CHEST: No chest wall deformity. Symmetrical expansion. Palpable mass in the right upper outer quadrant of the right breast LUNGS: Equal air entry with diffuse wheezes CVS: Regular rate and rhythm, normal S1 and S2, no gallops, no murmurs, no rubs ABDOMEN: Soft, nontender. No hepatosplenomegaly, normal bowel sounds, no guarding or rigidity. EXTREMITIES: No clubbing, no edema, no cyanosis, 2+ pulses and upper and lower extremities. MUSCULOSKELETAL: Muscle strength and tone normal. SPINE: No scoliosis or deformity SKIN: No rashes CENTRAL NERVOUS SYSTEM: Alert and oriented -3. No focal deficits, tone is normal in all 4 extremities. PSYCHIATRIC: Alert and oriented -3. Appropriate affect. Intact judgment and insight. - Labs CBC & Chem 7: 04/04/20 07:02 04/04/20 07:02 Labs: Abnormal Lab Results - Last 24 Hours (Table) 04/03/20 04/03/20 04/03/20 Range/Units 10:20 10:20 13:03 WBC (3.8-10.6) k/uL Hgb (11.4-16.0) gm/dL Plt Count (150-450) k/uL Neutrophils # (1.3-7.7) k/uL Sodium (137-145) mmol/L Glucose (74-99) mg/dL POC Glucose (mg/dL) (75-99) mg/dL AST 42 H (14-36) U/L ALT 48 H (4-34) U/L Alkaline Phosphatase (38-126) U/L Albumin 3.3 L (3.5-5.0) g/dL CA 15-3 Antigen 48.2 H (0.0-32.3) U/mL CA 27-29 88.8 H (0.0-38.5) U/mL Urine Blood (Negative) 04/03/20 04/03/20 04/04/20 Range/Units 19:54 22:05 07:02 WBC 16.4 H (3.8-10.6) k/uL Hgb 11.2 L (11.4-16.0) gm/dL Plt Count 561 H (150-450) k/uL Neutrophils # 14.9 H (1.3-7.7) k/uL Sodium (137-145) mmol/L Glucose (74-99) mg/dL POC Glucose (mg/dL) 108 H (75-99) mg/dL AST (14-36) U/L ALT (4-34) U/L Alkaline Phosphatase (38-126) U/L Albumin (3.5-5.0) g/dL CA 15-3 Antigen (0.0-32.3) U/mL CA 27-29 (0.0-38.5) U/mL Urine Blood Moderate H (Negative) 04/04/20 04/04/20 Range/Units 07:02 07:06 WBC (3.8-10.6) k/uL Hgb (11.4-16.0) gm/dL Plt Count (150-450) k/uL Neutrophils # (1.3-7.7) k/uL Sodium 136 L (137-145) mmol/L Glucose 181 H (74-99) mg/dL POC Glucose (mg/dL) 196 H (75-99) mg/dL AST (14-36) U/L ALT 41 H (4-34) U/L Alkaline Phosphatase 133 H (38-126) U/L Albumin (3.5-5.0) g/dL CA 15-3 Antigen (0.0-32.3) U/mL CA 27-29 (0.0-38.5) U/mL Urine Blood (Negative) Assessment and Plan Plan: Assessment: #1. Dyspnea, multifactorial, related to possibility of metastatic breast cancer, acute exacerbation of COPD and possibility of pneumonia, possibly community-acquired #2. Suspect metastatic breast cancer, needle biopsy of the right breast mass is pending. CTA chest showed extensive pulmonary masses, hypodense liver lesions, mediastinal and bronchial adenopathy, abdominal para-aortic lymphadenopathy, and multiple renal masses consistent with malignancy #3. Ex-smoker, in remission for last 3 weeks, smoked less than a pack a day for 20 years #4. Hypertension #5. History of previous myocardial infarction #6. History of oophorectomy in the remote past #7. Family history of breast cancer in sister #8. Diarrhea, rule out C. diff #9. Brain metastasis Plan: We will discontinue the antibiotics, check stool for C. diff, patient is less congested, vital signs stable, awaiting biopsy results. Results of the MRI of the brain were noted. Radiation oncology has been consulted for evidence of metastatic lesions in the brain. Decadron has been started. Further treatment per medical oncology. I performed a history & physical examination of the patient and discussed their management with my nurse practitioner, Linsey Jimenez. I reviewed the nurse practitioner's note and agree with the documented findings and plan of care. Lung sounds are positive for diffuse wheezes throughout the lung edmondson. The findings and the impression was discussed with the patient. I attest to the d ocumentation by the nurse practitioner. Time with Patient: Less than 30
[2020-04-04] MEDS ORDERED: LOPERAMIDE 2 MG CAP PO STA (11:33)
[2020-04-04] MEDS ORDERED: LOPERAMIDE 2 MG CAP PO PRN (11:33)
[2020-04-04 11:43] LABS: Glucose,Whole Blood 143 mg/dL (75-99)
[2020-04-04 12:00] VITALS: BP 124/72; RESP 20; TEMP 97.8
[2020-04-04 13:49] VITALS: BMI 26.4
[2020-04-04] MEDS ORDERED: PIPERACILLIN-TAZOBACTAM 3.375 GM in SODIUM CHLORIDE 0.9% 100 ML IVPB SCH (14:30)
--- NOTE | 2020-04-04 15:16 | P.PN ---
Subjective Progress Note Date: 04/04/20 Principal diagnosis: This is a 59-year-old female who was recently admitted with shortness of breath and cough that had been ongoing for several weeks and is being closely monitored . Patient is being treated for pneumonia and was also found to have significant bilateral metastatic lesions of the right upper lobe. Patient underwent a bone scan today along with biopsies and are currently pending at this time. Oncology following. Patient states she is having a lot of diarrhea today and the C. diff will be ordered. Patient was given Imodium as needed. Zosyn was added. Per oncology recommendations they wanted to do a liver biopsy today although patient states she has had enough testing today and has an appointment with oncology in one week and will discuss possible liver biopsy at that point. Review of systems: Constitutional: No reports of fevers or chills, reports generalized fatigue Cardiovascular: No reports of chest pain or palpitations Respiratory: Reports mild shortness of breath and cough GI: No reports of nausea, vomiting, reports diarrhea : No reports of dysuria or retention Neurovascular: No reports of weakness, no reports of numbness Active Medications Acetaminophen (Tylenol Tab) 650 mg PO Q6HR PRN PRN Reason: Mild Pain or Fever > 100.5 Last Admin: 04/03/20 22:38 Dose: 650 mg Documented by: Albuterol Sulfate (Ventolin Nebulized) 2.5 mg INHALATION RT-QID [facility] Last Admin: 04/04/20 11:10 Dose: 2.5 mg Documented by: Albuterol/Ipratropium (Duoneb 0.5 Mg-3 Mg/3 Ml Soln) 3 ml INHALATION RT-QID PRN PRN Reason: Shortness Of Breath Or Wheezing Last Admin: 04/04/20 07:56 Dose: 3 ml Documented by: Alprazolam (Xanax) 0.25 mg PO TID PRN PRN Reason: Anxiety Atorvastatin Calcium (Lipitor) 40 mg PO DAILY [facility] Last Admin: 04/04/20 08:36 Dose: 40 mg Documented by: Budesonide/Formoterol Fumarate (Symbicort 160-4.5 Mcg Inhaler) 2 puff INHALATION RT-BID [facility] Last Admin: 04/04/20 07:57 Dose: 2 puff Documented by: Dexamethasone Sodium Phosphate (Decadron) 4 mg IV Q6HR [facility] Last Admin: 04/04/20 12:39 Dose: 4 mg Documented by: Lisinopril/HCTZ (Zestoretic 20-25) 1 each PO DAILY [facility] Last Admin: 04/04/20 08:37 Dose: 1 each Documented by: Heparin Sodium (Porcine) (Heparin) 5,000 unit SQ Q8HR [facility] Last Admin: 04/04/20 08:37 Dose: Not Given Documented by: Sodium Chloride (Saline 0.9%) 1,000 mls @ 20 mls/hr IV .Q24H [facility] Last Admin: 04/04/20 00:09 Dose: 20 mls/hr Documented by: Piperacillin Sod/Tazobactam (Sod 3.375 gm/ Sodium Chloride) 100 mls @ 25 mls/hr IVPB Q8H [facility] Insulin Aspart (Novolog) 0 unit SQ ACHS [facility]; Protocol Last Admin: 04/04/20 12:40 Dose: 1 unit Documented by: Loperamide HCl (Imodium) 2 mg PO QID PRN PRN Reason: Diarrhea Naloxone HCl (Narcan) 0.2 mg IV Q2M PRN PRN Reason: Opioid Reversal Ondansetron HCl (Zofran) 4 mg IVP Q8HR PRN PRN Reason: Nausea And Vomiting Last Admin: 04/04/20 08:38 Dose: 4 mg Documented by: Pantoprazole Sodium (Protonix) 40 mg PO AC-BRKFST [facility] Last Admin: 04/04/20 08:36 Dose: 40 mg Documented by: Temazepam (Restoril) 15 mg PO HS PRN PRN Reason: Insomnia Objective - Vital Signs Vital signs: Vital Signs Temp 97.8 F 04/04/20 11:59 Pulse 94 04/04/20 11:59 Resp 20 04/04/20 11:59 BP 124/72 04/04/20 11:59 Pulse Ox 95 04/04/20 11:59 Intake & Output 04/03/20 04/04/20 04/04/20 18:59 06:59 18:59 Intake Total 830 Output Total 350 Balance -350 830 Weight 63.503 kg Intake: Intake, IV Titration 290 Amount Sodium Chloride 0.9% 1, 240 000 ml @ 20 mls/hr IV . Q24H [facility] Rx#:[id number] cefTRIAXone 1 gm In 50 Sodium Chloride 0.9% 50 ml @ 100 mls/hr IVPB Q24H [facility] Rx#:[id number] Oral 540 Output: Urine 350 Other: # Voids 2 2 # Bowel Movements 2 2 - Exam Gen: This is a 59-year-old female sitting up in bed, awake, alert and oriented 3, well-developed, well-nourished. Temp is 97.8F, pulse is 94, respirations are 20, blood pressure is 124/72, oxygen saturation is 95% on room air. HEENT: Head is atraumatic, normocephalic. Pupils equal, round. Sclerae is anicteric. NECK: Supple. No JVD. No lymphadenopathy. No thyromegaly. LUNGS: Diminished breath sounds at the bases with a few scattered rhonchi and crackles noted. Mild expiratory wheezing noted on exam. No intercostal retractions. HEART: S1, S2 are muffled ABDOMEN: Soft. Bowel sounds are present. No masses. No tenderness. EXTREMITIES: No pedal edema. No calf tenderness. NEUROLOGICAL: Patient is awake, alert and oriented x3. Cranial nerves 2 through 12 are grossly intact. - Labs CBC & Chem 7: 04/04/20 07:02 04/04/20 07:02 Labs: Abnormal Lab Results - Last 24 Hours (Table) 04/03/20 04/03/20 04/03/20 Range/Units 10:20 10:20 19:54 WBC (3.8-10.6) k/uL Hgb (11.4-16.0) gm/dL Plt Count (150-450) k/uL Neutrophils # (1.3-7.7) k/uL Sodium (137-145) mmol/L Glucose (74-99) mg/dL POC Glucose (mg/dL) 108 H (75-99) mg/dL ALT (4-34) U/L Alkaline Phosphatase (38-126) U/L CA 15-3 Antigen 48.2 H (0.0-32.3) U/mL CA 27-29 88.8 H (0.0-38.5) U/mL Urine Blood (Negative) 04/03/20 04/04/20 04/04/20 Range/Units 22:05 07:02 07:02 WBC 16.4 H (3.8-10.6) k/uL Hgb 11.2 L (11.4-16.0) gm/dL Plt Count 561 H (150-450) k/uL Neutrophils # 14.9 H (1.3-7.7) k/uL Sodium 136 L (137-145) mmol/L Glucose 181 H (74-99) mg/dL POC Glucose (mg/dL) (75-99) mg/dL ALT 41 H (4-34) U/L Alkaline Phosphatase 133 H (38-126) U/L CA 15-3 Antigen (0.0-32.3) U/mL CA 27-29 (0.0-38.5) U/mL Urine Blood Moderate H (Negative) 04/04/20 04/04/20 Range/Units 07:06 11:40 WBC (3.8-10.6) k/uL Hgb (11.4-16.0) gm/dL Plt Count (150-450) k/uL Neutrophils # (1.3-7.7) k/uL Sodium (137-145) mmol/L Glucose (74-99) mg/dL POC Glucose (mg/dL) 196 H 143 H (75-99) mg/dL ALT (4-34) U/L Alkaline Phosphatase (38-126) U/L CA 15-3 Antigen (0.0-32.3) U/mL CA 27-29 (0.0-38.5) U/mL Urine Blood (Negative) Assessment and Plan Assessment: Right-sided pneumonia, possibly postobstructive, with failure of outpatient treatment with systemic inflammatory response syndrome Possible right breast cancer with metastasis with possibly hepatic metastasis as well as renal metastasis Increased white blood count Increased platelets Elevated d-dimer Hyponatremia Elevated AST, ALT Hypertension Hyperlipidemia history of nicotine dependence Full code Recommendations and discussion: Recommend continue current medications, management, and symptomatic treatment. Patient underwent bone scan today and will follow-up with oncology in the outpatient setting. Patient continues to have diarrhea and will check for C. diff. Imodium has been added. IV Zosyn is also been added and will continue with IV antibiotics. Due to multiple complex medical issues, prognosis is extremely guarded. Will repeat a.m. labs. Further recommendations to follow.
--- NOTE | 2020-04-04 15:23 | NM ---
EXAMINATION TYPE: NM bone scan whole body DATE OF EXAM: 04/04/2020 COMPARISON: 04/03/2020 CT scan HISTORY: History of malignancy Delayed whole-body scanning was performed following the injection of 21.7 mCi Tc 99m MDP. Images acq uired 6 hours post injection. FINDINGS: Faint uptake is seen throughout the thoracic and lumbar spine which is most typical degenerative upta ke. Uptake involving the knees, feet, ankles, and shoulders is most typical of post arthritic change. IMPRESSION: 1. No diagnostic evidence of metastases. 2. Faint uptake involving the vertebral column most likely degenerative.
[2020-04-04 15:24] VITALS: PULSE 88
--- NOTE | 2020-04-04 16:12 | P.PN ---
Subjective Progress Note Date: 04/04/20 Principal diagnosis: Metastatic cancer Ms. Reich is inpatient to go home today. She is overwhelmed with tests and diagnostics and prefers to consider liver biopsy as outpatient. I have sat down with patient and daughter and explained the reasonings for needing a metastatic lesion for initial diagnosis considering her presentation with diffuse metastatic disease the possibility of a synchronous primary is very possible. She has agreed to complete the bone scan and await to see Dr. Chi from radiation oncology but she really wants to go home. Spoke with primary team and they would like her to stay one more day for another 24 hours on IV antibiotics with post obstructive pneumonia and she has also had diarrhea since last night. Diarrhea may have been induced from po contrast although with being on antibiotics need to consider underlying infectious causes. She has decreased po intake and there is noted oral thrush grade two in which I have started diflucan po . Objective - Vital Signs Vital signs: Vital Signs Temp 97.8 F 04/04/20 11:59 Pulse 88 04/04/20 15:32 Resp 20 04/04/20 11:59 BP 124/72 04/04/20 11:59 Pulse Ox 95 04/04/20 11:59 Intake & Output 04/03/20 04/04/20 04/04/20 18:59 06:59 18:59 Intake Total 830 Output Total 350 Balance -350 830 Weight 63.503 kg Intake: Intake, IV Titration 290 Amount Sodium Chloride 0.9% 1, 240 000 ml @ 20 mls/hr IV . Q24H [facility] Rx#:[id number] cefTRIAXone 1 gm In 50 Sodium Chloride 0.9% 50 ml @ 100 mls/hr IVPB Q24H [facility] Rx#:[id number] Oral 540 Output: Urine 350 Other: # Voids 2 2 # Bowel Movements 2 2 - Exam Gen: Alert and oriented, mild distress, inappropriate responses to discussion that may reflect the future need of re-education Head: NCAT Neck: Supple, Trachea midline Heart: Tachy, Reg Lungs: Diffuse coarse breath sounds: Increased respiratory effort Lymph: small palpable right axilla, no other palpable adenopathy on exam Abdomen: Soft tissue superficial masses, sSoft, Non-distended Breast: Palpable right outer breast mass Ext: No edema, Peripheral pulses present Psych: Calm and unaffected by hospitalization, wants to go home. - Labs CBC & Chem 7: 04/04/20 07:02 04/04/20 07:02 Labs: Abnormal Lab Results - Last 24 Hours (Table) 04/03/20 04/03/20 04/03/20 Range/Units 10:20 10:20 19:54 WBC (3.8-10.6) k/uL Hgb (11.4-16.0) gm/dL Plt Count (150-450) k/uL Neutrophils # (1.3-7.7) k/uL Sodium (137-145) mmol/L Glucose (74-99) mg/dL POC Glucose (mg/dL) 108 H (75-99) mg/dL ALT (4-34) U/L Alkaline Phosphatase (38-126) U/L CA 15-3 Antigen 48.2 H (0.0-32.3) U/mL CA 27-29 88.8 H (0.0-38.5) U/mL Urine Blood (Negative) 04/03/20 04/04/20 04/04/20 Range/Units 22:05 07:02 07:02 WBC 16.4 H (3.8-10.6) k/uL Hgb 11.2 L (11.4-16.0) gm/dL Plt Count 561 H (150-450) k/uL Neutrophils # 14.9 H (1.3-7.7) k/uL Sodium 136 L (137-145) mmol/L Glucose 181 H (74-99) mg/dL POC Glucose (mg/dL) (75-99) mg/dL ALT 41 H (4-34) U/L Alkaline Phosphatase 133 H (38-126) U/L CA 15-3 Antigen (0.0-32.3) U/mL CA 27-29 (0.0-38.5) U/mL Urine Blood Moderate H (Negative) 04/04/20 04/04/20 Range/Units 07:06 11:40 WBC (3.8-10.6) k/uL Hgb (11.4-16.0) gm/dL Plt Count (150-450) k/uL Neutrophils # (1.3-7.7) k/uL Sodium (137-145) mmol/L Glucose (74-99) mg/dL POC Glucose (mg/dL) 196 H 143 H (75-99) mg/dL ALT (4-34) U/L Alkaline Phosphatase (38-126) U/L CA 15-3 Antigen (0.0-32.3) U/mL CA 27-29 (0.0-38.5) U/mL Urine Blood (Negative) Microbiology - Last 24 Hours (Table) 04/03/20 13:03 Blood Culture - Preliminary Blood No Growth after 24 hours 04/03/20 13:03 Blood Culture - Preliminary Blood No Growth after 24 hours Assessment and Plan (1) Breast mass, right Current Visit: Yes Status: Acute Code(s): N63.10 - UNSPECIFIED LUMP IN THE RIGHT BREAST, UNSPECIFIED QUADRANT SNOMED Code(s): 31576387 (2) Liver lesion Current Visit: Yes Status: Acute Code(s): K76.9 - LIVER DISEASE, UNSPECIFIED SNOMED Code(s): 095389436 (3) Bilateral kidney masses Current Visit: Yes Status: Acute Code(s): N28.89 - OTHER SPECIFIED DISORDERS OF KIDNEY AND URETER SNOMED Code(s): 866811604 (4) Leukocytosis Current Visit: Yes Status: Acute Code(s): D72.829 - ELEVATED WHITE BLOOD CELL COUNT, UNSPECIFIED SNOMED Code(s): 285747791 (5) Thrombocytosis Current Visit: Yes Status: Acute Code(s): D47.3 - ESSENTIAL (HEMORRHAGIC) TH ROMBOCYTHEMIA SNOMED Code(s): 6563693 (6) Lung metastasis Current Visit: Yes Status: Acute Code(s): C78.00 - SECONDARY MALIGNANT NEOPLASM OF UNSPECIFIED LUNG SNOMED Code(s): 78855928 (7) Pneumonia Current Visit: Yes Status: Acute Code(s): J18.9 - PNEUMONIA, UNSPECIFIED ORGANISM SNOMED Code(s): 034723593 Plan: Assessment and Recommendations: Right Breast Mass: - Originally found on Breast ultrasound 03/27/20 - Palpable outer mass Bilateral Pulmonary nodules: - CTA revealed numerous soft tissues through lungs measuring up to 2.5cm - Extensive mediastinal adenopathy bilaterally measuring up to 4x2.5cm Hypodense Lesion in Liver - 2cm New Brain Met: Right inferior medial occipital lobe Bilateral Solid Masses in Kidneys Para-aortic left side abdominal lymph node noted Nuclear medicine bone scan negative for metastatic disease to bone Acute Hypoxic Respiratory Failure: Secondary to Pneumonia - Resolving Leukocytosis: Neutrophilia Mild Thrombocytosis: Reactive/Resolved Bilateral infiltrates: Suspicious for Post-Obstructive Pneumonia: Persistent Nausea/Vomiting: Secondary to productive cough Diarrhea: - Recommend stool studies prior to discharge Oral Candiasis Plan: - At this time patient has refused to undergo another tissue biopsy. We will await the subcutaneous and breast lesion, and re-visit if still needed at follow-up. She was told that obtaining liver biopsy while here was advised. - Discharge per primary team: She will follow-up as scheduled in discharge paperwork with Dr. Pineda on april [address] Chi on this week - Long discussion with patient and daughter discussing the natural history cancer and the picture of metastatic cancer which would be considered incurable with treatment goals aimed for palliation. Patient and daughters questions answered and understanding stated - Plan for SRS versus whole Brain mapping on this week with Dr. Chi (depending on preliminary path results) - Discharge home on Zyprexa at hs (persistent nausea and vomiting likely exaccerbated by brain met, pneumonia, and oral thrush) - Discharge home with Dexamethasone TID and to be weaned per Dr. Chi in Radiation Oncology, PPI was also rx'd - Diflucan 100mg po x7 days for oral thrush Neli Smith NP
--- NOTE | 2020-04-04 17:05 | P.CONS ---
History of Present Illness - Reason for Consult Consult date: 04/04/20 brain metastasis Requesting physician: José Miguel Pineda - Chief Complaint dyspnea - History of Present Illness The patient is a 59-year-old female with approximately 40 pack year smoking history. She presented to the emergency room [facility] [place] on April 02 secondary to progressive dyspnea on exertion. She was found after undergoing a CT of the chest to have numerous bilateral lung masses consistent with metastatic disease measuring up to 2.5 cm along with extensive mediastinal adenopathy and a 2.5 cm right breast lesion. She had further imaging including a CT scan of the abdomen and pelvis which revealed multiple hypodense liver masses consistent with metastasis, as well as a 2.6 cm left kidney mass and retroperitoneal adenopathy. MRI of the brain was performed and this revealed 1 irregular shaped or 2 adjacent lesions in the right occipital lobe measuring 1.4 x 1.4 x 2.3 cm. The patient was admitted with concern for underlying pneumonia. She initiated t reatment for this. She also had biopsy of the right breast lesion, as well as a subcutaneous lesion along the abdominal wall. Pathology from these areas is pending. She was recommended to have a biopsy of the liver, however she was reported to possibly taken aspirin recently and thus this was delayed. The patient reports that she has had no significant headaches, nausea, difficulty with balance or changes in her vision. Since her hospital stay, she reports or dyspnea on exertion is much improved. She is ambulating without difficulty and is reporting no pain at this time. She is quite anxious to leave, and is planning to sign out AMA. Review of Systems Constitutional: Denies chills, Denies fever Eyes: denies blurred vision, denies diplopia Ears: deny: decreased hearing Ears, nose, mouth and throat: Denies dysphagia, Denies headache Breasts: right: masses Cardiovascular: Reports dyspnea on exertion, Denies chest pain Respiratory: Reports cough, Reports dyspnea, Denies pain on inspiration Gastrointestinal: Denies abdominal pain, Denies BRBPR Genitourinary: Denies flank pain Musculoskeletal: Denies arm numbness/tingling, Denies frequent falls Neurological: Denies aphasia, Denies ataxia, Denies balance difficulties, Denies confusion, Denies convulsions, Denies double vision, Denies headaches, Denies numbness, Denies paresthesias Past Medical History Past Medical History: Hyperlipidemia, Hypertension Additional Past Medical History / Comment(s): 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 History of Any Multi-Drug Resistant Organisms: None Reported Additional Past Surgical History / Comment(s): tonsils, ovaris Past Anesthesia/Blood Transfusion Reactions: No Reported Reaction Past Psychological History: No Psychological Hx Reported Smoking Status: Former smoker Past Alcohol Use History: None Reported Past Drug Use History: None Reported - Past Family History Father Family Medical History: Myocardial Infarction ([place]), Renal Disease Mother Family Medical History: Diabetes Mellitus Medications and Allergies Home Medications Medication Instructions Recorded Confirmed Type Aspirin 81 mg PO DAILY 03/27/20 04/02/20 History Atorvastatin [Lipitor] 40 mg PO DAILY 03/27/20 04/02/20 History Lisinopril-Hctz 20-25 mg 1 tab PO DAILY 03/27/20 04/02/20 History [Zestoretic 20-25] Albuterol Sulfate [Albuterol 2 puff PO RT-Q4H PRN 04/02/20 04/02/20 History Sulfate Hfa] Ondansetron HCl [Zofran] 4 mg PO Q4H PRN 04/02/20 04/02/20 History Dexamethasone 4 mg PO TID #90 tablet 04/04/20 Rx Fluconazole [Diflucan] 100 mg PO DAILY #7 tablet 04/04/20 Rx OLANZapine [ZyPREXA] 2.5 mg PO HS #30 tablet 04/04/20 Rx Omeprazole [PriLOSEC] 40 mg PO DAILY #30 cap 04/04/20 Rx Allergies Allergy/AdvReac Type Severity Reaction Status Date / Time No Known Allergies Allergy Verified 04/02/20 23:22 Physical Exam Vitals: Vital Signs Temp Pulse Pulse Resp BP Pulse Ox 04/04/20 15:32 88 04/04/20 15:19 88 04/04/20 11:59 97.8 F 94 20 124/72 95 04/04/20 11:21 88 04/04/20 11:11 92 04/04/20 08:07 80 04/04/20 07:57 76 04/04/20 04:35 97.5 F L 72 16 123/74 95 04/04/20 00:05 20 04/03/20 21:01 98.3 F 95 20 154/82 94 L 06/22/20 20:11 84 04/03/20 19:58 80 04/03/20 17:28 97.9 F 86 18 133/69 99 04/03/20 17:04 80 Intake and Output 04/04/20 04/04/20 04/04/20 06:59 14:59 22:59 Intake Total 280 Balance 280 Intake: Intake, IV Titration 160 Amount Sodium Chloride 0.9% 1, 160 000 ml @ 20 mls/hr IV . Q24H [facility] Rx#:[id number] Oral 120 Other: # Voids 2 # Bowel Movements 2 2 Weight 63.503 kg - Constitutional General appearance: average body habitus - EENT Eyes: EOMI, PERRLA ENT: hearing grossly normal - Neck Neck: no lymphadenopathy - Respiratory Respiratory: bilateral: CTA - Cardiovascular Rhythm: regular - Gastrointestinal General gastrointestinal: no distended, no tenderness - Integumentary Integumentary: no calor, no cellulitis - Neurologic Neurologic: CNII-XII intact - Musculoskeletal Musculoskeletal: strength equal bilaterally - Psychiatric Psychiatric: A&O x's 3, appropriate affect Results CBC & Chem 7: 04/04/20 07:02 04/04/20 07:02 Labs: Abnormal Lab Results - Last 24 Hours (Table) 04/03/20 04/03/20 04/04/20 Range/Units 19:54 22:05 07:02 WBC 16.4 H (3.8-10.6) k/uL Hgb 11.2 L (11.4-16.0) gm/dL Plt Count 561 H (150-450) k/uL Neutrophils # 14.9 H (1.3-7.7) k/uL Sodium (137-145) mmol/L Glucose (74-99) mg/dL POC Glucose (mg/dL) 108 H (75-99) mg/dL ALT (4-34) U/L Alkaline Phosphatase (38-126) U/L Urine Blood Moderate H (Negative) 04/04/20 04/04/20 04/04/20 Range/Units 07:02 07:06 11:40 WBC (3.8-10.6) k/uL Hgb (11.4-16.0) gm/dL Plt Count (150-450) k/uL Neutrophils # (1.3-7.7) k/uL Sodium 136 L (137-145) mmol/L Glucose 181 H (74-99) mg/dL POC Glucose (mg/dL) 196 H 143 H (75-99) mg/dL ALT 41 H (4-34) U/L Alkaline Phosphatase 133 H (38-126) U/L Urine Blood (Negative) Microbiology - Last 24 Hours (Table) 04/03/20 13:03 Blood Culture - Preliminary Blood No Growth after 24 hours 04/03/20 13:03 Blood Culture - Preliminary Blood No Growth after [address] scan - abdomen: report reviewed, image reviewed CT scan - chest: report reviewed, image reviewed CT scan - pelvis: report reviewed, image reviewed MRI - head: report reviewed, image reviewed Assessment and Plan Assessment: The patient is a 59-year-old female with a [id number]-[id number] smoking history presenting with significant dyspnea on exertion. On imaging, she was found to have diffuse metastatic disease involving the bilateral lungs, liver, retroperitoneal adenopathy and even a brain metastasis. Pathology from a right breast lesion as well as a subcutaneous lesion are pending at this time. 1. Brain metastases: I discussed with the patient that as she has an isolated area of metastasis in the right occipital lobe, radiosurgery would be the preferred treatment option. However, I explained that we would first be to rule out small cell lung cancer. The patient completed her biopsy yesterday, and we are not likely to have pathology report until at least tomorrow. I discussed with the patient that as she is planning to [facility], I would recommend she return to our clinic (patient and daughter given a return appointment on 10 AM). I explained that during this visit we would discuss addressing her brain metastasis. She is planning for medical oncology follow-up the following week. 2. Diffuse metastatic cancer: At this point, it is unclear what the patient's primary site of disease is. I explained that we will wait for the final pathology report, and that this may have some impact on how he manage her brain metastasis. Time with Patient: Greater than 30
--- NOTE | 2020-04-05 06:14 | DS ---
DISCHARGE SUMMARY DATE OF SERVICE: 04/04/2020 FINAL DIAGNOSES: 1. Right-sided pneumonia possibly postobstructive with failure of outpatient treatment with systemic inflammatory response syndrome. 2. Possible right breast cancer with metastasis with possible hepatic metastasis as well as renal metastasis. 3. Rule out primary renal cell carcinoma. 4. Increased WBC. 5. Increased platelets. 6. Elevated D-dimer. 7. Hyponatremia. 8. Elevated AST, ALT. 9. Hypertension. 10.Hyperlipidemia. 11.History of nicotine dependence. 12.FULL CODE. DISCHARGE DISPOSITION: The patient left the hospital AGAINST MEDICAL ADVICE. HISTORY OF PRESENT ILLNESS: This is a 59-year-old woman with a past medical history of multiple medical problems admitted with suspected breast cancer or renal cancer with mets, but however the patient underwent a fine-needle aspiration biopsy of her breast, but however the patient was not willing to stay further for treatment or evaluation. Patient left the hospital AGAINST MEDICAL ADVICE. Please refer to the multiple notes and consultation notes and progress notes for further information. MMODL / IJN: [id number] /
== END 2020-04-04 16:00 | disposition left against medical advice (07) | DRG 194 ==
LOC: EC 21:05 → 4SSUR 22:59 → 5NMEDONC 04-03 16:15
PROVIDERS: ADMIT Hospitalist; ATTEND Hospitalist
PROC: 0JB83ZX Excision of Abdomen Subcutaneous Tissue and Fascia, Percutaneous Approach, Diagnostic (ICD-10-PCS; principal; 2020-04-03)
PROC: 0HBT3ZX Excision of Right Breast, Percutaneous Approach, Diagnostic (ICD-10-PCS; principal; 2020-04-03)
DX: J18.9 Pneumonia, unspecified organism (principal); J44.0 Chronic obstructive pulmonary disease with (acute) lower respiratory infection; J44.1 Chronic obstructive pulmonary disease with (acute) exacerbation; E87.1 Hypo-osmolality and hyponatremia; B37.0 Candidal stomatitis; C78.7 Secondary malignant neoplasm of liver and intrahepatic bile duct; C78.02 Secondary malignant neoplasm of left lung; C78.01 Secondary malignant neoplasm of right lung; C79.31 Secondary malignant neoplasm of brain; C79.02 Secondary malignant neoplasm of left kidney and renal pelvis; F17.201 Nicotine dependence, unspecified, in remission; I25.2 Old myocardial infarction; Z20.828 Contact with and (suspected) exposure to other viral communicable diseases; I25.10 Atherosclerotic heart disease of native coronary artery without angina pectoris; C50.911 Malignant neoplasm of unspecified site of right female breast; D47.3 Essential (hemorrhagic) thrombocythemia; E78.5 Hyperlipidemia, unspecified; I10 Essential (primary) hypertension; R59.0 Localized enlarged lymph nodes; R09.02 Hypoxemia; Z79.82 Long term (current) use of aspirin; Z79.899 Other long term (current) drug therapy; Z80.3 Family history of malignant neoplasm of breast; Z80.42 Family history of malignant neoplasm of prostate; Z82.49 Family history of ischemic heart disease and other diseases of the circulatory system; Z90.721 Acquired absence of ovaries, unilateral; R79.1 Abnormal coagulation profile; R19.7 Diarrhea, unspecified; Z83.3 Family history of diabetes mellitus; Z84.1 Family history of disorders of kidney and ureter
CPT/HCPCS: 20206; 36415; 70553; 71046; 71275; 74178; 76942; 78306; 80048; 80053; 80076; 81001; 83615; 84484; 85025; 85379; 85610; 85730; 86300; 87040; 88305; 88341; 88342; 93005; 94640; 96365; 96375; 99285

== ENCOUNTER 2020-04-17 10:11 | Inpatient (IN) | payer OTHER ==
[2020-04-17] MEDS ORDERED: SODIUM CHLORIDE 0.9% 500 ML 500 ML IV STA (10:48)
[2020-04-17] MEDS ORDERED: SODIUM CHLORIDE 0.9% 1,000 ML IV STA (10:48)
[2020-04-17] MEDS ORDERED: DILTIAZEM DRIP BOLUS FROM BAG 1 MG SOLN IV ONE (10:53)
--- NOTE | 2020-04-17 10:53 | ED ---
General Adult HPI - General Chief complaint: Shortness of Breath Stated complaint: ROGELIO Time Seen by Provider: 04/17/20 10:15 Source: patient, RN notes reviewed, old records reviewed Mode of arrival: EMS Limitations: no limitations - History of Present Illness Initial comments: This is a 59-year-old female presents emergency department with past medical history significant for metastatic lung cancer. Patient states it is metastasized to the brain and kidney and she states she just had surgery on her brain recently. Patient also states she's had a recent bout of pneumonia which she stopped antibiotics about a week ago. Patient comes in today complaining shortness of breath and weakness. Patient denies any recent fever or chills. Patient denies any specific pain she states she hurts all over. Patient denies any history of irregular heartbeat or atrial fibrillation. Patient denies feeling any palpitations. Patient denies any swelling. Patient denies any abdominal pain patient denies nausea vomiting diarrhea. - Related Data Home Medications Medication Instructions Recorded Confirmed Atorvastatin [Lipitor] 40 mg PO HS 03/27/20 04/17/20 Lisinopril-Hctz 20-25 mg 1 tab PO DAILY 03/27/20 04/17/20 [Zestoretic 20-25] Albuterol Sulfate [Albuterol 2 puff PO RT-Q4H PRN 04/02/20 04/17/20 Sulfate Hfa] Ondansetron HCl [Zofran] 4 mg PO Q4H PRN 04/02/20 04/17/20 Benzonatate [Tessalon Perles] 100 mg PO TID PRN 04/17/20 04/17/20 Previous Rx's Medication Instructions Recorded Dexamethasone 4 mg PO TID #90 tablet 04/04/20 OLANZapine [ZyPREXA] 2.5 mg PO HS #30 tablet 04/04/20 Omeprazole [PriLOSEC] 40 mg PO DAILY #30 cap 04/04/20 Allergies Allergy/AdvReac Type Severity Reaction Status Date / Time methylate Allergy Unknown Uncoded 04/17/20 11:38 Review of Systems ROS Statement: Those systems with pertinent positive or pertinent negative responses have been documented in the HPI. ROS Other: All systems not noted in ROS Statement are negative. 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 Last Myocardial Infarction Date:: 2000 History of Any Multi-Drug Resistant Organisms: None Reported Additional Past Surgical History / Comment(s): tonsils, ovaris, biopsy, Brain sx Past Anesthesia/Blood Transfusion Reactions: No Reported Reaction Past Psychological History: No Psychological Hx Reported Smoking Status: Former smoker Past Alcohol Use History: None Reported Past Drug Use History: None Reported - Past Family History Father Family Medical History: Myocardial Infarction ([place]), Renal Disease Mother Family Medical History: Diabetes Mellitus General Exam - General Exam Comments Initial Comments: GENERAL: Patient is well-developed and well-nourished. Patient is nontoxic and well- hydrated and is in mild distress. ENT: Neck is soft and supple. No significant lymphadenopathy is noted. Oropharynx is clear. Moist mucous membranes. Neck has full range of motion without eliciting any pain. EYES: The sclera were anicteric and conjunctiva were pink and moist. Extraocular movements were intact and pupils were equal round and reactive to light. Eyelids were unremarkable. PULMONARY: Unlabored respirations. Good breath sounds bilaterally. No audible rales rhonchi or wheezing was noted. CARDIOVASCULAR: Patient has an irregular heartbeat at about 150 beats a minute ABDOMEN: Soft and nontender with normal bowel sounds. SKIN: Skin is clear with no lesions or rashes and otherwise unremarkable. NEUROLOGIC: Patient is alert and oriented x3. Cranial nerves II through XII are grossly intact. Motor and sensory are also intact. Normal speech, volume and content. Symmetrical smile. MUSCULOSKELETAL: Normal extremities with adequate strength and full range of motion. No lower extremity swelling or edema. No calf tenderness. LYMPHATICS: No significant lymphadenopathy is noted PSYCHIATRIC: Normal psychiatric evaluation. Limitations: no limitations Course Vital Signs 04/17/20 04/17/20 04/17/20 10:14 10:20 11:06 Temperature 97.9 F Pulse Rate 110 H 168 H 140 H Respiratory 32 H 24 18 Rate Blood Pressure 89/68 100/83 91/74 O2 Sat by Pulse 99 100 97 Oximetry 04/17/20 04/17/20 04/17/20 11:08 11:19 11:50 Temperature Pulse Rate 110 H Respiratory 18 18 Rate Blood Pressure 97/69 109/86 O2 Sat by Pulse 98 Oximetry 04/17/20 04/17/20 12:37 13:36 Temperature Pulse Rate 130 H 74 Respiratory 18 16 Rate Blood Pressure 116/74 106/73 O2 Sat by Pulse 100 100 Oximetry Medical Decision Making - Medical Decision Making EKG shows atrial fibrillation with rapid ventricular response at 152 bpm QRS is 82 QT interval 380 QTC is 457. Patient's EKG shows no ST segment elevation or depression. CT of the chest shows a possible PE. I spoke with Dr. Pineda he wanted the patient started on heparin and he will follow patient in the hospital. I spoke to because he agreed to admit the patient admitted the patient wrote admitting orders and I continued heparin on the floor. He is also on Cardizem for atrial fibrillation and that will be continued on the floor as well. Patient converted to a sinus rhythm slightly an EKG EKG shows normal sinus rhythm at 74 bpm RI interval 252 QRS 74 QT interval 364 QTC is 44. Patient's EKG shows no ST segment elevation or depression. - Lab Data Result diagrams: 04/17/20 10:35 04/17/20 10:35 Lab Results 04/17/20 04/17/20 04/17/20 Range/Units 10:35 10:35 10:35 WBC 37.5 H (3.8-10.6) k/uL RBC 3.97 (3.80-5.40) m/uL Hgb 11.5 (11.4-16.0) gm/dL Hct 35.7 (34.0-46.0) % MCV 89.8 (80.0-100.0) fL MCH 28.9 (25.0-35.0) pg MCHC 32.2 (31.0-37.0) g/dL RDW 14.0 (11.5-15.5) % Plt Count 469 H (150-450) k/uL Neutrophils % 91 % Lymphocytes % 3 % Monocytes % 5 % Eosinophils % 0 % Basophils % 0 % Neutrophils # 34.2 H (1.3-7.7) k/uL Lymphocytes # 1.1 (1.0-4.8) k/uL Monocytes # 1.7 H (0-1.0) k/uL Eosinophils # 0.1 (0-0.7) k/uL Basophils # 0.1 (0-0.2) k/uL Manual Slide Review Performed Hypersegmented Neuts Present RBC Morphology Normal PT 10.3 (9.0-12.0) sec INR 1.0 (<1.2) APTT 19.9 L (22.0-30.0) sec D-Dimer 2.17 H (<0.60) mg/L FEU Sodium 132 L (137-145) mmol/L Potassium 5.6 H (3.5-5.1) mmol/L Chloride 102 (98-107) mmol/L Carbon Dioxide 18 L (22-30) mmol/L Anion Gap 12 mmol/L BUN 92 H (7-17) mg/dL Creatinine 1.33 H (0.52-1.04) mg/dL Est GFR (CKD-EPI)AfAm 51 (>60 ml/min/1.73 sqM) Est GFR (CKD-EPI)NonAf 44 (>60 ml/min/1.73 sqM) Glucose 172 H (74-99) mg/dL Plasma Lactic Acid Darius (0.7-2.0) mmol/L Calcium 10.5 H (8.4-10.2) mg/dL Magnesium 2.4 H (1.6-2.3) mg/dL Total Bilirubin 0.7 (0.2-1.3) mg/dL AST 51 H (14-36) U/L ALT 56 H (4-34) U/L Alkaline Phosphatase 153 H (38-126) U/L Troponin I (0.000-0.034) ng/mL NT-Pro-B Natriuret Pep pg/mL Total Protein 6.3 (6.3-8.2) g/dL Albumin 3.4 L (3.5-5.0) g/dL 04/17/20 04/17/20 04/17/20 Range/Units 10:35 10:35 10:35 WBC (3.8-10.6) k/uL RBC (3.80-5.40) m/uL Hgb (11.4-16.0) gm/dL Hct (34.0-46.0) % MCV (80.0-100.0) fL MCH (25.0-35.0) pg MCHC (31.0-37.0) g/dL RDW (11.5-15.5) % Plt Count (150-450) k/uL Neutrophils % % Lymphocytes % % Monocytes % % Eosinophils % % Basophils % % Neutrophils # (1.3-7.7) k/uL Lymphocytes # (1.0-4.8) k/uL Monocytes # (0-1.0) k/uL Eosinophils # (0-0.7) k/uL Basophils # (0-0.2) k/uL Manual Slide Review Hypersegmented Neuts RBC Morphology PT (9.0-12.0) sec INR (<1.2) APTT (22.0-30.0) sec D-Dimer (<0.60) mg/L FEU Sodium (137-145) mmol/L Potassium (3.5-5.1) mmol/L Chloride (98-107) mmol/L Carbon Dioxide (22-30) mmol/L Anion Gap mmol/L BUN (7-17) mg/dL Creatinine (0.52-1.04) mg/dL Est GFR (CKD-EPI)AfAm (>60 ml/min/1.73 sqM) Est GFR (CKD-EPI)NonAf (>60 ml/min/1.73 sqM) Glucose (74-99) mg/dL Plasma Lactic Acid Darius 1.9 (0.7-2.0) mmol/L Calcium (8.4-10.2) mg/dL Magnesium (1.6-2.3) mg/dL Total Bilirubin (0.2-1.3) mg/dL AST (14-36) U/L ALT (4-34) U/L Alkaline Phosphatase (38-126) U/L Troponin I 0.045 H* (0.000-0.034) ng/mL NT-Pro-B Natriuret Pep 542 pg/mL Total Protein (6.3-8.2) g/dL Albumin (3.5-5.0) g/dL Critical Care Time Critical Care Time: Yes Total Critical Care Time: 35 Disposition Clinical Impression: Atrial fibrillation with rapid ventricular response, Pulmonary embolism, Metastatic cancer Disposition: ADMITTED IP TO THIS [facility] Time of Disposition: 12:59
[2020-04-17] MEDS ORDERED: DILTIAZEM 125 MG in SODIUM CHLORIDE 0.9% 100 ML IV SCH (11:00)
[2020-04-17 11:09] LABS: Basophils # (A) 0.1 k/uL (0-0.2); Basophils % (A) 0 %; Eosinophils # (A) 0.1 k/uL (0-0.7); Eosinophils % (A) 0 %; HCT 35.7 % (34.0-46.0); HGB 11.5 gm/dL (11.4-16.0); Lymphocytes # (A) 1.1 k/uL (1.0-4.8); Lymphocytes % (A) 3 %; MCH 28.9 pg (25.0-35.0); MCHC 32.2 g/dL (31.0-37.0); MCV 89.8 fL (80.0-100.0); Mean Platelet Volume 8.1; Monocytes # (A) 1.7 k/uL (0-1.0); Monocytes % (A) 5 %; Neutrophils # (A) 34.2 k/uL (1.3-7.7); Neutrophils % (A) 91 %; Platelet Count 469 k/uL (150-450); RBC 3.97 m/uL (3.80-5.40); WBC 37.5 k/uL (3.8-10.6)
[2020-04-17 11:16] LABS: Albumin 3.4 g/dL (3.5-5.0); Calcium 10.5 mg/dL (8.4-10.2); Magnesium 2.4 mg/dL (1.6-2.3); Potassium 5.6 mmol/L (3.5-5.1); Total Bilirubin 0.7 mg/dL (0.2-1.3); Total Protein 6.3 g/dL (6.3-8.2)
[2020-04-17 11:26] LABS: Prothrombin Time 10.3 sec (9.0-12.0)
[2020-04-17 11:28] LABS: Hypersegmented Neutrophils Present
[2020-04-17 11:31] LABS: D-Dimer 2.17 mg/L FEU (<0.60); Partial Thromboplastin Time 19.9 sec (22.0-30.0)
[2020-04-17] MEDS ORDERED: ONDANSETRON 4 MG/2 ML VIAL IVP STA (12:27)
--- NOTE | 2020-04-17 12:28 | CT ---
EXAMINATION TYPE: CT chest angio for PE DATE OF EXAM: 04/17/2020 COMPARISON: HISTORY: Difficulty breathing, elevated d-dimer CT DLP: 281.8 mGycm Automated exposure control for dose reduction was used. CONTRAST: CT Chest for pulmonary embolism performed with with IV Contrast, patient injected with 80 mL of Isovu e 370. FINDINGS: Soft tissue abnormality present in the inferior right breast, subcutaneous nodule present i n the subcutaneous fat over the right upper quadrant level. LUNGS: The lungs are stable, there are multiple soft tissue masses as on prior exam within the lungs identified. There is no pleural effusion or pneumothorax seen. The tracheobronchial tree is patent . MEDIASTINUM: There is satisfactory enhancement of the pulmonary artery and its branches, there is no CT evidence for pulmonary embolism centrally, difficult to exclude a segmental pulmonary embolus with in the left lower lobe, axial image #80, there may be poor enhancement of the arteries, poor flow. Ex tensive mediastinal adenopathy, hilar adenopathy is noted. No pericardial effusion is seen. AORTA: No additional significant abnormality is seen. OTHER: Multiple low dense foci scattered within the kidneys and liver.. IMPRESSION: Metastatic disease. Difficult to exclude small subsegmental pulmonary embolism.
[2020-04-17] MEDS ORDERED: SODIUM CHLORIDE 0.9% 1,000 ML IV ONE (12:59)
[2020-04-17] MEDS ORDERED: HEPARIN SODIUM,PORCINE 10,000 UNIT/ML 1 ML VIAL IV ONE (12:59)
[2020-04-17] MEDS: HEPARIN SOD,PORK IN 0.45% NACL 25,000 UNIT in 0.45% NACL 1 250ML.BAG IV SCH (13:28)
[2020-04-17] MEDS ORDERED: traMADol 50 MG TAB PO PRN (14:44)
[2020-04-17] MEDS: HYDROcodone/APAP 5-325MG 1 EACH TAB PO PRN (14:48)
[2020-04-17] MEDS ORDERED: BENZONATATE 100 MG CAP PO PRN (16:01)
--- NOTE | 2020-04-17 17:18 | P.HPIM ---
History of Present Illness 51-year-old pleasant female came in with complaints of shortness of breath or denied orthopnea paroxysmal nocturnal dyspnea. Patient denied any fever chills was complaining of generalized body aches. Patient is found to be in atrial fibrillation Ventricular rate now converted to sinus rhythm. Patient has significant history of breast cancer with metastases to brain and patient is severely dysuria radiation therapy and patient is also on Decadron. Patient denied any focal weakness does have generalized weakness. Patient is also found to have low blood pressure along with hyperkalemia along with acute renal failure because of that reason I am holding off lisinopril hydrochlorothiazide. Patient had a CAT scan of the chest which showed metastatic disease and a very small segment segmental PE cannot be ruled out. Patient is on IV heparin anyways for atrial fibrillation. I do not have any echo cardiac exam available at this time echocardiogram will be obtained. Review of Systems REVIEW OF SYSTEMS: CONSTITUTIONAL: No fever, no malaise, no fatigue. HEENT: No recent visual problems or hearing problems. Denied any sore throat. CARDIOVASCULAR: No chest pain, orthopnea, PND, no palpitations, no syncope. PULMONARY: no cough, no hemoptysis. GASTROINTESTINAL: No diarrhea, no nausea, no vomiting, no abdominal pain. NEUROLOGICAL: No headaches, no weakness, no numbness. HEMATOLOGICAL: Denies any bleeding or petechiae. GENITOURINARY: Denies any burning micturition, frequency, or urgency. MUSCULOSKELETAL/RHEUMATOLOGICAL: Denies any joint pain, swelling, or any muscle pain. ENDOCRINE: Denies any polyuria or polydipsia. The rest of the 14-point review of systems is negative. 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 Last Myocardial Infarction Date:: 2000 History of Any Multi-Drug Resistant Organisms: None Reported Additional Past Surgical History / Comment(s): tonsils, ovaris, biopsy, Brain sx Past Anesthesia/Blood Transfusion Reactions: No Reported Reaction Past Psychological History: No Psychological Hx Reported Smoking Status: Former smoker Past Alcohol Use History: None Reported Additional Past Alcohol Use History / Comment(s): quit smoking March 2020 Past Drug Use History: None Reported - Past Family History Father Family Medical History: Myocardial Infarction ([place]), Renal Disease Mother Family Medical History: Diabetes Mellitus Medications and Allergies Home Medications Medication Instructions Recorded Confirmed Type Atorvastatin [Lipitor] 40 mg PO HS 03/27/20 04/17/20 History Lisinopril-Hctz 20-25 mg 1 tab PO DAILY 03/27/20 04/17/20 History [Zestoretic 20-25] Albuterol Sulfate [Albuterol 2 puff PO RT-Q4H PRN 04/02/20 04/17/20 History Sulfate Hfa] Ondansetron HCl [Zofran] 4 mg PO Q4H PRN 04/02/20 04/17/20 History Dexamethasone 4 mg PO TID #90 tablet 04/04/20 04/17/20 Rx OLANZapine [ZyPREXA] 2.5 mg PO HS #30 tablet 04/04/20 04/17/20 Rx Omeprazole [PriLOSEC] 40 mg PO DAILY #30 cap 04/04/20 04/17/20 Rx Benzonatate [Tessalon Perles] 100 mg PO TID PRN 04/17/20 04/17/20 History Allergies Allergy/AdvReac Type Severity Reaction Status Date / Time methylate Allergy Unknown Uncoded 04/17/20 11:38 Physical Exam Vitals: Vital Signs Temp Pulse Pulse Resp BP Pulse Ox 04/17/20 16:00 69 20 04/17/20 15:17 97.5 F L 69 20 99 04/17/20 14:00 97.8 F 78 18 101/66 98 04/17/20 13:36 74 16 106/73 100 04/17/20 12:37 130 H 18 116/74 100 04/17/20 11:50 109/86 04/17/20 11:19 110 H 18 97/69 98 04/17/20 11:08 18 04/17/20 11:06 140 H 18 91/74 97 04/17/20 10:20 168 H 24 100/83 100 04/17/20 10:14 97.9 F 110 H 32 H 89/68 99 Intake and Output 04/17/20 04/17/20 04/17/20 06:59 14:59 22:59 Other: Weight 60.645 kg 63.5 kg PHYSICAL EXAMINATION: GENERAL: The patient is alert and oriented x3, not in any acute distress. Well developed, well nourished. HEENT: Pupils are round and equally reacting to light. EOMI. No scleral icterus. No conjunctival pallor. Normocephalic, atraumatic. No pharyngeal erythema. No thyromegaly. CARDIOVASCULAR: S1 and S2 present. No murmurs, rubs, or gallops. PULMONARY: Chest is clear to auscultation, no wheezing or crackles. ABDOMEN: Soft, nontender, nondistended, normoactive bowel sounds. No palpable organomegaly. MUSCULOSKELETAL: No joint swelling or deformity. EXTREMITIES: No cyanosis, clubbing, or pedal edema. NEUROLOGICAL: Gross neurological examination did not reveal any focal deficits. Does have generalized at the weakness and does have some memory difficulties and deficits as per the patient since radiation therapy to the SKIN: No rashes. Results CBC & Chem 7: 04/17/20 10:35 04/17/20 10:35 Labs: Abnormal Lab Results - Last 24 Hours (Table) 04/17/20 04/17/20 04/17/20 Range/Units 10:35 10:35 10:35 WBC 37.5 H (3.8-10.6) k/uL Plt Count 469 H (150-450) k/uL Neutrophils # 34.2 H (1.3-7.7) k/uL Monocytes # 1.7 H (0-1.0) k/uL APTT 19.9 L (22.0-30.0) sec D-Dimer 2.17 H (<0.60) mg/L FEU Sodium 132 L (137-145) mmol/L Potassium 5.6 H (3.5-5.1) mmol/L Carbon Dioxide 18 L (22-30) mmol/L BUN 92 H (7-17) mg/dL Creatinine 1.33 H (0.52-1.04) mg/dL Glucose 172 H (74-99) mg/dL Calcium 10.5 H (8.4-10.2) mg/dL Magnesium 2.4 H (1.6-2.3) mg/dL AST 51 H (14-36) U/L ALT 56 H (4-34) U/L Alkaline Phosphatase 153 H (38-126) U/L Troponin I (0.000-0.034) ng/mL Albumin 3.4 L (3.5-5.0) g/dL 04/17/20 Range/Units 10:35 WBC (3.8-10.6) k/uL Plt Count (150-450) k/uL Neutrophils # (1.3-7.7) k/uL Monocytes # (0-1.0) k/uL APTT (22.0-30.0) sec D-Dimer (<0.60) mg/L FEU Sodium (137-145) mmol/L Potassium (3.5-5.1) mmol/L Carbon Dioxide (22-30) mmol/L BUN (7-17) mg/dL Creatinine (0.52-1.04) mg/dL Glucose (74-99) mg/dL Calcium (8.4-10.2) mg/dL Magnesium (1.6-2.3) mg/dL AST (14-36) U/L ALT (4-34) U/L Alkaline Phosphatase (38-126) U/L Troponin I 0.045 H* (0.000-0.034) ng/mL Albumin (3.5-5.0) g/dL Thrombosis Risk Factor Assmnt - Choose All That Apply Each Factor Represents 1 point: Age 41-60 years Thrombosis Risk Factor Assessment Total Risk Factor Score: 1 Thrombosis Risk Factor Assessment Level: Low Risk Assessment and Plan Plan: -New onset atrial fibrillation probably contributing to her shortness of breath: Patient converted to sinus rhythm at this time patient will be started on metoprolol 25 twice a day along with the creation of anticoagulation. -Low possibility of PE -Breast cancer with metastases to brain continue with Decadron oncology was consulted. -Hyponatremia: Secondary to hydrocodone presently which was discontinued -Hyperkalemia secondary to lisinopril which is discontinued -Hypertension patient is presently hypotensive hold off and it was medications as mentioned above -Mildly elevated troponins probably secondary to atrial fibrillation repeat 2 more sets of troponins -Leukocytosis reactive in nature -Hyperlipidemia
[2020-04-17] MEDS: METOPROLOL TARTRATE 25 MG TAB PO SCH ×2 (17:23→20:26)
[2020-04-17] MEDS: OLANZapine 2.5 MG TAB PO SCH (20:25)
[2020-04-17] MEDS: ATORVASTATIN 40 MG TAB PO SCH (20:26)
[2020-04-17] MEDS ORDERED: FAMOTIDINE 20 MG TAB PO SCH (21:00)
[2020-04-17] MEDS: dexAMETHasone 4 MG TAB PO SCH (23:42)
[2020-04-18 08:53] LABS: Albumin 3.2 g/dL (3.5-5.0); Potassium 5.6 mmol/L (3.5-5.1); Total Bilirubin 0.8 mg/dL (0.2-1.3); Total Protein 6.4 g/dL (6.3-8.2)
[2020-04-18 09:05] LABS: HCT 30.8 % (34.0-46.0); HGB 10.2 gm/dL (11.4-16.0); MCH 30.5 pg (25.0-35.0); MCHC 33.1 g/dL (31.0-37.0); MCV 92.3 fL (80.0-100.0); Mean Platelet Volume 9.6; Platelet Count 404 k/uL (150-450); RBC 3.34 m/uL (3.80-5.40); WBC 35.1 k/uL (3.8-10.6)
[2020-04-18] MEDS: METOPROLOL TARTRATE 25 MG TAB PO SCH ×2 (09:40→20:18)
[2020-04-18] MEDS: dexAMETHasone 4 MG TAB PO SCH ×3 (09:40→23:33)
[2020-04-18] MEDS: ONDANSETRON 4 MG TAB PO PRN ×2 (09:40→14:19)
[2020-04-18] MEDS ORDERED: SODIUM POLYSTYRENE SULFONATE 15 GM/60 ML BOTTLE PO STA (10:02)
--- NOTE | 2020-04-18 11:19 | P.PN ---
Subjective Patient is admitted for further new-onset atrial fibrillation presently rate controlled echocardiac M is pending patient is nauseous patient will be switched to Protonix will continued this can you Pepcid patient does have significant leukocytosis which is believed secondary to Decadron and reactive. Patient's white blood cell count is getting better today. Patient can use to have hyperkalemia will give a dose of capsulate patient renal failure is improving at this time Constitutional: Denied any fatigue denied any fever. Cardio vascular: denied any chest pain, palpitations Gastrointestinal as having nausea and mild epigastric abdominal discomfort Pulmonary: Denied any shortness of breath cough Neurologic denied any new focal deficits All inpatient medications were reviewed and appropriate changes in these medications as dictated in the interval history and assessment and plan. Objective - Vital Signs Vital signs: Vital Signs Temp 97.6 F 04/18/20 04:00 Pulse 78 04/18/20 08:00 Resp 26 H 04/18/20 08:00 BP 120/59 04/18/20 08:00 Pulse Ox 97 04/18/20 08:00 Intake & Output 04/17/20 04/18/20 04/18/20 18:59 06:59 18:59 Intake Total 65.86 117.655 Balance 65.86 117.655 Weight 63.5 kg 65.5 kg Intake: Intake, IV Titration 65.86 117.655 Amount Heparin Sod,Pork in 0.45% 65.86 117.655 NaCl 25,000 unit In 0.45 % NaCl 1 250ml.bag @ 18 UNITS/KG/HR 10.916 mls/hr IV .[id number] [facility] Rx#: [id number] Other: # Voids 1 1 - Exam PHYSICAL EXAMINATION: GENERAL: The patient is alert and oriented x3, not in any acute distress. Well developed, well nourished. HEENT: Pupils are round and equally reacting to light. EOMI. No scleral icterus. No conjunctival pallor. Normocephalic, atraumatic. No pharyngeal erythema. No thyromegaly. CARDIOVASCULAR: S1 and S2 present. No murmurs, rubs, or gallops. PULMONARY: Chest is clear to auscultation, no wheezing or crackles. ABDOMEN: Soft, nontender, nondistended, normoactive bowel sounds. No palpable organomegaly. MUSCULOSKELETAL: No joint swelling or deformity. EXTREMITIES: No cyanosis, clubbing, or pedal edema. NEUROLOGICAL: Gross neurological examination did not reveal any focal deficits. Does have generalized at the weakness and does have some memory difficulties and deficits as per the patient since radiation therapy to the SKIN: No rashes. - Labs CBC & Chem 7: 04/18/20 06:18 04/18/20 06:18 Labs: Abnormal Lab Results - Last 24 Hours (Table) 04/17/20 04/17/20 04/17/20 Range/Units 10:35 10:35 10:35 WBC 37.5 H (3.8-10.6) k/uL RBC (3.80-5.40) m/uL Hgb (11.4-16.0) gm/dL Hct (34.0-46.0) % Plt Count 469 H (150-450) k/uL Neutrophils # 34.2 H (1.3-7.7) k/uL Monocytes # 1.7 H (0-1.0) k/uL APTT 19.9 L (22.0-30.0) sec D-Dimer 2.17 H (<0.60) mg/L FEU Sodium 132 L (137-145) mmol/L Potassium 5.6 H (3.5-5.1) mmol/L Carbon Dioxide 18 L (22-30) mmol/L BUN 92 H (7-17) mg/dL Creatinine 1.33 H (0.52-1.04) mg/dL Glucose 172 H (74-99) mg/dL Calcium 10.5 H (8.4-10.2) mg/dL Magnesium 2.4 H (1.6-2.3) mg/dL AST 51 H (14-36) U/L ALT 56 H (4-34) U/L Alkaline Phosphatase 153 H (38-126) U/L Troponin I (0.000-0.034) ng/mL Albumin 3.4 L (3.5-5.0) g/dL TSH (0.465-4.680) mIU/L 04/17/20 04/17/20 04/18/20 Range/Units 10:35 18:16 01:39 WBC (3.8-10.6) k/uL RBC (3.80-5.40) m/uL Hgb (11.4-16.0) gm/dL Hct (34.0-46.0) % Plt Count (150-450) k/uL Neutrophils # (1.3-7.7) k/uL Monocytes # (0-1.0) k/uL APTT 115.5 H* 63.9 H (22.0-30.0) sec D-Dimer (<0.60) mg/L FEU Sodium (137-145) mmol/L Potassium (3.5-5.1) mmol/L Carbon Dioxide (22-30) mmol/L BUN (7-17) mg/dL Creatinine (0.52-1.04) mg/dL Glucose (74-99) mg/dL Calcium (8.4-10.2) mg/dL Magnesium (1.6-2.3) mg/dL AST (14-36) U/L ALT (4-34) U/L Alkaline Phosphatase (38-126) U/L Troponin I 0.045 H* (0.000-0.034) ng/mL Albumin (3.5-5.0) g/dL TSH (0.465-4.680) mIU/L 04/18/20 04/18/20 04/18/20 Range/Units 06:18 06:18 09:35 WBC 35.1 H (3.8-10.6) k/uL RBC 3.34 L (3.80-5.40) m/uL Hgb 10.2 L (11.4-16.0) gm/dL Hct 30.8 L (34.0-46.0) % Plt Count (150-450) k/uL Neutrophils # (1.3-7.7) k/uL Monocytes # (0-1.0) k/uL APTT 95.0 H (22.0-30.0) sec D-Dimer (<0.60) mg/L FEU Sodium 136 L (137-145) mmol/L Potassium 5.6 H (3.5-5.1) mmol/L Carbon Dioxide (22-30) mmol/L BUN 59 H (7-17) mg/dL Creatinine (0.52-1.04) mg/dL Glucose (74-99) mg/dL Calcium (8.4-10.2) mg/dL Magnesium (1.6-2.3) mg/dL AST 59 H (14-36) U/L ALT 50 H (4-34) U/L Alkaline Phosphatase 157 H (38-126) U/L Troponin I (0.000-0.034) ng/mL Albumin 3.2 L (3.5-5.0) g/dL TSH (0.465-4.680) mIU/L 04/18/20 Range/Units 09:35 WBC (3.8-10.6) k/uL RBC (3.80-5.40) m/uL Hgb (11.4-16.0) gm/dL Hct (34.0-46.0) % Plt Count (150-450) k/uL Neutrophils # (1.3-7.7) k/uL Monocytes # (0-1.0) k/uL APTT (22.0-30.0) sec D-Dimer (<0.60) mg/L FEU Sodium (137-145) mmol/L Potassium (3.5-5.1) mmol/L Carbon Dioxide (22-30) mmol/L BUN (7-17) mg/dL Creatinine (0.52-1.04) mg/dL Glucose (74-99) mg/dL Calcium (8.4-10.2) mg/dL Magnesium (1.6-2.3) mg/dL AST (14-36) U/L ALT (4-34) U/L Alkaline Phosphatase (38-126) U/L Troponin I (0.000-0.034) ng/mL Albumin (3.5-5.0) g/dL TSH 0.154 L (0.465-4.680) mIU/L Assessment and Plan Plan: -New onset atrial fibrillation probably contributing to her shortness of breath: Patient converted to sinus rhythm at this time patient is rate controlled clinically doing well. -Low possibility of PE -Acute renal failure prerenal azotemia improving at this time. -Breast cancer with metastases to brain continue with Decadron oncology was con sulted. -Hyponatremia: Secondary to hydrocodone presently which was discontinued -Hyperkalemia secondary to lisinopril which is discontinued -Hypertension patient is presently hypotensive hold off and it was medications as mentioned above -Mildly elevated troponins probably secondary to atrial fibrillation repeat 2 more sets of troponins -Leukocytosis reactive in nature -Hyperlipidemia
--- NOTE | 2020-04-18 11:33 | ECHOF ---
Referral Reason:new onset afib MEASUREMENTS -------- HEIGHT: 152.4 cm WEIGHT: 65.3 kg BP: RVIDd: 3.0 cm (< 3.3) IVSd: 1.0 cm (0.6 - 1.1) LVIDd: 3.4 cm (3.9 - 5.3) LVPWd: 1.1 cm (0.6 - 1.1) IVSs: 1.3 cm LVIDs: 2.3 cm LVPWs: 1.2 cm LA Diam: 3.6 cm (2.7 - 3.8) Ao Diam: 3.3 cm (2.0 - 3.7) AV Cusp: 1.4 cm (1.5 - 2.6) MV EXCURSION: 20.174 mm (> 18.000) MV EF SLOPE: 62 mm/s (70 - 150) EPSS: 0.4 cm MV E Cecil: 0.38 m/s MV DecT: 210 ms MV A Cecil: 0.93 m/s MV E/A Ratio: 0.41 RAP: 5.00 mmHg RVSP: 16.15 mmHg FINDINGS -------- Sinus rhythm. This was a technically adequate study. LV size, wall thickness and systolic function are normal, with an EF greater than 55%. The left nghia tricular size is normal. The right ventricle is normal in size. The left atrial size is normal. The right atrial size is normal. There is mild aortic valve sclerosis. Trace amount of aortic regurgitation. Mild mitral annular calcification present. Mild mitral regurgitation is present. Mild tricuspid regurgitation present. Right ventricular systolic pressure is normal at < 35 mmHg. There is no pulmonic regurgitation present. The aortic root size is normal. There is no pericardial effusion. CONCLUSIONS -------- 1. LV size, wall thickness and systolic function are normal, with an EF greater than 55%. 2. The left atrial size is normal. 3. There is mild aortic valve sclerosis. 4. Trace amount of aortic regurgitation. 5. Mild mitral annular calcification present. 6. Mild mitral regurgitation is present. 7. Mild tricuspid regurgitation present. 8. There is no pulmonic regurgitation present. 9. There is no pericardial effusion. ADMINISTRATIVE RESOURCES ASSOCIATE: Yany Zhang RDCS
[2020-04-18] MEDS: PANTOPRAZOLE 40 MG/10 ML VIAL IVP SCH (11:53)
--- NOTE | 2020-04-18 14:46 | P.CRDCN ---
History of Present Illness Consult date: 04/18/20 Requesting physician: Connie Rehman Consult reason: atrial fibrillation Chief complaint: Shortness of breath History of present illness: This is a pleasant 59-year-old female with history of recently diagnosed breast cancer with metastases to the brain, lung, also noted to have liver lesions, renal masses, recently underwent surgery on her brain. Was scheduled as an outpatient to see oncology, just recently in the hospital in March of this year which time she received this diagnosis. Presented to the hospital with symptoms of moderate to severe shortness of breath. Her initial EKG on presentation here showed atrial fibrillation with a rapid ventricular response. Subsequent EKG showed normal sinus rhythm with nonspecific ST-T wave changes. CTA of the chest was performed which showed metastatic disease, difficult to exclude small subsegmental pulmonary embolism. Blood pressure 126/60 with a heart rate of 70, afebrile, 96% on 3 L of oxygen. White blood cell count 37.5, hemoglobin 11.5, platelet count 469. D-dimer 2.1, sodium 132, potassium 5.6, BUN 92, creatinine 1.3. Magnesium 2.4, AST 51, ALT 56, alk phos 153, troponin 0.045, BNP level 542. At the time of my examination this morning, patient's complaining of significant abdominal pain and she feels quite short of breath. She denies any palpitations, no dizziness or lightheadedness. She states that she has never been diagnosed in the past as having an irregular heartbeat. She is currently on IV heparin as well as metoprolol 25 mg one tablet by mouth twice a day. 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 Last Myocardial Infarction Date:: 2000 History of Any Multi-Drug Resistant Organisms: None Reported Additional Past Surgical History / Comment(s): tonsils, ovaris, biopsy, Brain sx Past Anesthesia/Blood Transfusion Reactions: No Reported Reaction Past Psychological History: No Psychological Hx Reported Smoking Status: Former smoker Past Alcohol Use History: None Reported Additional Past Alcohol Use History / Comment(s): quit smoking March 2020 Past Drug Use History: None Reported - Past Family History Father Family Medical History: Myocardial Infarction ([place]), Renal Disease Mother Family Medical History: Diabetes Mellitus Medications and Allergies Home Medications Medication Instructions Recorded Confirmed Type Atorvastatin [Lipitor] 40 mg PO HS 03/27/20 04/17/20 History Lisinopril-Hctz 20-25 mg 1 tab PO DAILY 03/27/20 04/17/20 History [Zestoretic 20-25] Albuterol Sulfate [Albuterol 2 puff PO RT-Q4H PRN 04/02/20 04/17/20 History Sulfate Hfa] Ondansetron HCl [Zofran] 4 mg PO Q4H PRN 04/02/20 04/17/20 History Dexamethasone 4 mg PO TID #90 tablet 04/04/20 04/17/20 Rx OLANZapine [ZyPREXA] 2.5 mg PO HS #30 tablet 04/04/20 04/17/20 Rx Omeprazole [PriLOSEC] 40 mg PO DAILY #30 cap 04/04/20 04/17/20 Rx Benzonatate [Tessalon Perles] 100 mg PO TID PRN 04/17/20 04/17/20 History Allergies Allergy/AdvReac Type Severity Reaction Status Date / Time methylate Allergy Unknown Uncoded 04/17/20 11:38 Physical Exam Vitals: Vital Signs Temp Pulse Resp BP Pulse Ox 04/18/20 12:00 71 24 126/70 99 04/18/20 08:00 78 26 H 120/59 97 04/18/20 04:00 97.6 F 70 21 127/67 96 04/17/20 23:40 97.7 F 61 19 110/59 99 04/17/20 19:55 97.6 F 69 20 101/58 90 L 04/17/20 17:23 22 92 L 04/17/20 16:00 69 20 04/17/20 15:17 97.5 F L 69 20 99 Intake and Output 04/17/20 04/18/20 04/18/20 22:59 06:59 14:59 Intake Total 65.86 117.655 Balance 65.86 117.655 Intake: Intake, IV Titration 65.86 117.655 Amount Heparin Sod,Pork in 0.45% 65.86 117.655 NaCl 25,000 unit In 0.45 % NaCl 1 250ml.bag @ 18 UNITS/KG/HR 10.916 mls/hr IV .[id number] [facility] Rx#: [id number] Other: # Voids 1 1 Weight 63.5 kg 65.5 kg PHYSICAL EXAMINATION: GENERAL: 59-year-old female in no acute distress at the time of my examination HEENT: Head is atraumatic, normocephalic. Pupils equal, round. Sclera anicteric. Conjunctiva are clear. Mucous membranes of the mouth are moist. Neck is supple. There is no elevated jugular venous pressure. No carotid bruit is heard. HEART EXAMINATION: Heart S1, S2 normal. No murmur or gallop heard. CHEST EXAMINATION: Lungs reveal diffuse scattered wheezing throughout. Decreased air exchange. ABDOMEN: Soft, nontender. Bowel sounds are heard. No organomegaly noted. EXTREMITIES: 2+ peripheral pulses with no evidence of peripheral edema and no calf tenderness noted. NEUROLOGIC patient is awake, alert and oriented 3 . . Results 04/18/20 06:18 04/18/20 06:18 Cardiac Enzymes 04/18/20 04/18/20 Range/Units 06:18 09:30 AST 59 H (14-36) U/L Troponin I 0.037 H* (0.000-0.034) ng/mL Coagulation 04/17/20 04/18/20 04/18/20 Range/Units 18:16 01:39 09:35 APTT 115.5 H* 63.9 H 95.0 H (22.0-30.0) sec CBC 04/18/20 Range/Units 06:18 WBC 35.1 H (3.8-10.6) k/uL RBC 3.34 L (3.80-5.40) m/uL Hgb 10.2 L (11.4-16.0) gm/dL Hct 30.8 L (34.0-46.0) % Plt Count 404 (150-450) k/uL Comprehensive Metabolic Panel 04/18/20 Range/Units 06:18 Sodium 136 L (137-145) mmol/L Potassium 5.6 H (3.5-5.1) mmol/L Chloride 107 (98-107) mmol/L Carbon Dioxide 22 (22-30) mmol/L BUN 59 H (7-17) mg/dL Creatinine 1.01 (0.52-1.04) mg/dL Glucose 99 (74-99) mg/dL Calcium 10.0 (8.4-10.2) mg/dL AST 59 H (14-36) U/L ALT 50 H (4-34) U/L Alkaline Phosphatase 157 H (38-126) U/L Total Protein 6.4 (6.3-8.2) g/dL Albumin 3.2 L (3.5-5.0) g/dL Current Medications Generic Name Dose Route Start Last Admin Trade Name Freq PRN Reason Stop Dose Admin Hydrocodone Bitart/Acetaminophen 1 each 04/17/20 14:44 04/17/20 14:48 Almyra 5-325 PO 1 each Q4HR PRN Administration Pain Albuterol Sulfate 2.5 mg 04/17/20 16:01 Ventolin Nebulized INHALATION RT-Q4H PRN Shortness Of Breath Or Wheezing Atorvastatin Calcium 40 mg 04/17/20 21:00 04/17/20 20:26 Lipitor PO 40 mg HS MISTY Administration Benzonatate 100 mg 04/17/20 16:01 Tessalon Perles PO TID PRN Cough Dexamethasone 4 mg 04/17/20 22:00 04/18/20 09:40 Hexadrol PO 4 mg TID MISTY Administration Heparin Sodium/Sodium Chloride 250 mls @ 10.916 mls/hr 04/17/20 13:00 04/18/20 10:18 25,000 unit/ Sodium Chloride IV 12 units/kg/hr .[id number] MISTY 7.277 mls/hr Titration Protocol 18 UNITS/KG/HR Metoprolol Tartrate 25 mg 04/17/20 16:28 04/18/20 09:40 Lopressor PO 25 mg BID MISTY Administration Olanzapine 2.5 mg 04/17/20 21:00 04/17/20 20:25 Zyprexa PO 2.5 mg HS MISTY Administration Ondansetron HCl 4 mg 04/17/20 16:01 04/18/20 14:19 Zofran PO 4 mg Q4H PRN Administration Nausea And Vomiting Pantoprazole Sodium 40 mg 04/18/20 10:15 04/18/20 11:53 Protonix IVP 40 mg DAILY MISTY Administration Tramadol HCl 50 mg 04/17/20 14:44 Ultram PO QID PRN Pain/Discomfort Intake and Output 04/17/20 04/18/20 04/18/20 22:59 06:59 14:59 Intake Total 65.86 117.655 Balance 65.86 117.655 Intake: Intake, IV Titration 65.86 117.655 Amount Heparin Sod,Pork in 0.45% 65.86 117.655 NaCl 25,000 unit In 0.45 % NaCl 1 250ml.bag @ 18 UNITS/KG/HR 10.916 mls/hr IV .[id number] [facility] Rx#: [id number] Other: # Voids 1 1 Weight 63.5 kg 65.5 kg 04/18/20 06:18 04/18/20 06:18 EKG Interpretations (text) Initial EKG showed atrial fibrillation with a rapid ventricular response Subsequent EKG shows normal sinus rhythm with nonspecific ST-T wave changes. Assessment and Plan Plan: Assessment and plan #1 atrial fibrillation with rapid ventricular response, paroxysmal, patient currently in normal sinus rhythm. #2 recent diagnosis of breast CA with metastases to the brain, lung, liver lesions and renal masses noted. Status post brain surgery #3 hypertension #4 nicotine dependence, patient quit smoking in March #5 questionable small pulmonary embolism on CT of the chest Plan We will obtain an echocardiogram with Doppler study as well as a TSH level. Continue IV heparin at this time, as well as beta zhou. DNP note has been reviewed, I agree with a documented findings and plan of care. Patient was seen and examined.
--- NOTE | 2020-04-18 16:18 | P.CONS ---
History of Present Illness - Reason for Consult Consult date: 04/18/20 metastatic breast cancer Requesting physician: Thiago Tolliver - Chief Complaint ROGELIO - History of Present Illness Mrs. Reich is a 59 year old who presented to [facility] at the end of March 2020 with complaints of shortness of breath, progressive over the last 3 months, she now was requiringO2 supplementation, she had only quit smoking [address] chest was performed at outside hospital, concerns for pulmonary nodules. She had a CTA showing bilateral adenopathy, pulmonary nodules, abnormality in the liver and a right breast mass. Patient had the breast and a subcutaneous abdominal mass biopsy, both positive for breast cancer, ER positive, SC/HER-2/shweta negative. She had MRI of the brain showed mets and she did receive SRS for the same, she is also on 4 mg of DEX 3 times a day taper. She was due to be seen in the office to further discuss treatment options but, her SOB progressed so she returned to hospital. CTA of the chest is suspicious for small PE, she was started on heparin drip. She is in acute renal failure, presenting with A. fib and electrolyte abnormalities. When seen patient is in mild respiratory distress, has difficulty caring on a conversation, denies fevers, states that she has had some occasional vomiting, no painful swallowing, chest pain, abdominal pain, acute changes in bowel or bladder, swelling in the legs or bleeding Review of Systems 14 point ROS is negative except as stated in HPI 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 Last Myocardial Infarction Date:: 2000 History of Any Multi-Drug Resistant Organisms: None Reported Additional Past Surgical History / Comment(s): tonsils, ovaris, biopsy, Brain sx Past Anesthesia/Blood Transfusion Reactions: No Reported Reaction Past Psychological History: No Psychological Hx Reported Smoking Status: Former smoker Past Alcohol Use History: None Reported Additional Past Alcohol Use History / Comment(s): quit smoking March 2020 Past Drug Use History: None Reported - Past Family History Father Family Medical History: Myocardial Infarction ([place]), Renal Disease Mother Family Medical History: Diabetes Mellitus Medications and Allergies Home Medications Medication Instructions Recorded Confirmed Type Atorvastatin [Lipitor] 40 mg PO HS 03/27/20 04/17/20 History Lisinopril-Hctz 20-25 mg 1 tab PO DAILY 03/27/20 04/17/20 History [Zestoretic 20-25] Albuterol Sulfate [Albuterol 2 puff PO RT-Q4H PRN 04/02/20 04/17/20 History Sulfate Hfa] Ondansetron HCl [Zofran] 4 mg PO Q4H PRN 04/02/20 04/17/20 History Dexamethasone 4 mg PO TID #90 tablet 04/04/20 04/17/20 Rx OLANZapine [ZyPREXA] 2.5 mg PO HS #30 tablet 04/04/20 04/17/20 Rx Omeprazole [PriLOSEC] 40 mg PO DAILY #30 cap 04/04/20 04/17/20 Rx Benzonatate [Tessalon Perles] 100 mg PO TID PRN 04/17/20 04/17/20 History Allergies Allergy/AdvReac Type Severity Reaction Status Date / Time methylate Allergy Unknown Uncoded 04/17/20 11:38 Physical Exam Vitals: Vital Signs Temp Pulse Pulse Resp BP BP Pulse Ox 04/18/20 08:00 78 26 H 120/59 97 04/18/20 04:00 97.6 F 70 21 127/67 96 04/17/20 23:40 97.7 F 61 19 110/59 99 04/17/20 19:55 97.6 F 69 20 101/58 90 L 04/17/20 17:23 22 92 L 04/17/20 16:00 69 20 04/17/20 15:17 97.5 F L 69 20 99 04/17/20 14:00 97.8 F 78 18 101/66 98 04/17/20 13:36 74 16 106/73 100 Intake and Output 04/17/20 04/18/20 04/18/20 22:59 06:59 14:59 Intake Total 65.86 117.655 Balance 65.86 117.655 Intake: Intake, IV Titration 65.86 117.655 Amount Heparin Sod,Pork in 0.45% 65.86 117.655 NaCl 25,000 unit In 0.45 % NaCl 1 250ml.bag @ 18 UNITS/KG/HR 10.916 mls/hr IV .[id number] [facility] Rx#: [id number] Other: # Voids 1 1 Weight 63.5 kg 65.5 kg - Constitutional General appearance: average body habitus, cooperative, mild distress - EENT Eyes: anicteric sclerae, EOMI ENT: hearing grossly normal, normal oropharynx - Neck Neck: no lymphadenopathy - Respiratory labored breathing Respiratory: bilateral: diminished - Cardiovascular Rhythm: regular Heart sounds: normal: S1, S2 Abnormal Heart Sounds: no systolic murmur, no diastolic murmur, no rub, no S3 Gallop, no S4 Gallop, no click, no other leg Peripheral Edema: bilateral: None - Gastrointestinal General gastrointestinal: no absent bowel sounds, no decreased bowel sounds, no distended, no hepatomegaly, no hyperactive bowel sounds, normal bowel sounds, no organomegaly, no rigid, no scaphoid, soft, no splenomegaly, tenderness, no umbilical hernia, no ventral hernia - Integumentary Integumentary: normal - Neurologic Neurologic: CNII-XII intact - Musculoskeletal Musculoskeletal: generalized weakness, strength equal bilaterally - Psychiatric Psychiatric: A&O x's 3, appropriate affect, intact judgment & insight Results CBC & Chem 7: 04/18/20 06:18 04/18/20 06:18 Labs: Abnormal Lab Results - Last 24 Hours (Table) 04/17/20 04/18/20 04/18/20 Range/Units 18:16 01:39 06:18 WBC 35.1 H (3.8-10.6) k/uL RBC 3.34 L (3.80-5.40) m/uL Hgb 10.2 L (11.4-16.0) gm/dL Hct 30.8 L (34.0-46.0) % APTT 115.5 H* 63.9 H (22.0-30.0) sec Sodium (137-145) mmol/L Potassium (3.5-5.1) mmol/L BUN (7-17) mg/dL AST (14-36) U/L ALT (4-34) U/L Alkaline Phosphatase (38-126) U/L Troponin I (0.000-0.034) ng/mL Albumin (3.5-5.0) g/dL TSH (0.465-4.680) mIU/L 04/18/20 04/18/20 04/18/20 Range/Units 06:18 09:30 09:35 WBC (3.8-10.6) k/uL RBC (3.80-5.40) m/uL Hgb (11.4-16.0) gm/dL Hct (34.0-46.0) % APTT 95.0 H (22.0-30.0) sec Sodium 136 L (137-145) mmol/L Potassium 5.6 H (3.5-5.1) mmol/L BUN 59 H (7-17) mg/dL AST 59 H (14-36) U/L ALT 50 H (4-34) U/L Alkaline Phosphatase 157 H (38-126) U/L Troponin I 0.037 H* (0.000-0.034) ng/mL Albumin 3.2 L (3.5-5.0) g/dL TSH (0.465-4.680) mIU/L 04/18/20 Range/Units 09:35 WBC (3.8-10.6) k/uL RBC (3.80-5.40) m/uL Hgb (11.4-16.0) gm/dL Hct (34.0-46.0) % APTT (22.0-30.0) sec Sodium (137-145) mmol/L Potassium (3.5-5.1) mmol/L BUN (7-17) mg/dL AST (14-36) U/L ALT (4-34) U/L Alkaline Phosphatase (38-126) U/L Troponin I (0.000-0.034) ng/mL Albumin (3.5-5.0) g/dL TSH 0.154 L (0.465-4.680) mIU/L CT scan - chest: report reviewed Assessment and Plan (1) Breast cancer Narrative/Plan: Treatment so far, has been to brain met with stereotactic radiosurgery, no other therapy. There is question as to if this presentation is most consistent with a hormone receptor positive ductal carcinoma. Patient has widespread metastasis in the brain, lung, liver and adrenals which is not a common presentation and in such a young patient. Initially, liver biopsy was the preferred target but, teena shafer refused. Patient has had breast and an abdominal mass biopsy, both showing metastatic breast cancer. Dr. Pineda spoke with the patient about concerns if she may possibly have 2 malignant process is occurring at the same time- especially with patient's significant history of smoking. She verbalized understanding his concerns and is amenable to liver biopsy. Order placed for the same. Further treatment decisions to be made pending additional biopsy Current Visit: Yes Status: Acute Priority: High Code(s): C50.919 - MALIGNANT NEOPLASM OF UNSP SITE OF UNSPECIFIED FEMALE BREAST SNOMED Code(s): 326573723 (2) Pulmonary embolism Narrative/Plan: Possibly a small PE on CT. Dr. Pineda has requested a VQ scan to see if there is a mismatch as patient is going to be difficult to anticoagulate on treatment. We will await results. Continue heparin drip for now. Current Visit: Yes Status: Acute Priority: High Code(s): I26.99 - OTHER PULMONARY EMBOLISM WITHOUT ACUTE COR PULMONALE SNOMED Code(s): 73121214 Plan: Pending cardiology workup and treatment of atrial fibrillation. Patient may end up being on anticoagulation secondary to A. fib. Doctor attests: I performed a history and physical examination of this patient, developed impression and plan of care, discussed with dictator. I agree with dictators note, documented as a scribe.
[2020-04-18] MEDS: HEPARIN SOD,PORK IN 0.45% NACL 25,000 UNIT in 0.45% NACL 1 250ML.BAG IV SCH (17:30)
[2020-04-18] MEDS: ATORVASTATIN 40 MG TAB PO SCH (20:18)
[2020-04-18] MEDS: OLANZapine 2.5 MG TAB PO SCH (20:18)
[2020-04-19 06:52] LABS: HCT 30.1 % (34.0-46.0); HGB 9.2 gm/dL (11.4-16.0); MCH 28.2 pg (25.0-35.0); MCHC 30.5 g/dL (31.0-37.0); MCV 92.2 fL (80.0-100.0); Mean Platelet Volume 8.5; Platelet Count 339 k/uL (150-450); RBC 3.26 m/uL (3.80-5.40); RDW 14.4 % (11.5-15.5); WBC 39.6 k/uL (3.8-10.6)
[2020-04-19 07:16] LABS: Calcium 9.9 mg/dL (8.4-10.2); Potassium 5.4 mmol/L (3.5-5.1)
[2020-04-19] MEDS: HYDROcodone/APAP 5-325MG 1 EACH TAB PO PRN (08:28)
[2020-04-19] MEDS: dexAMETHasone 4 MG TAB PO SCH ×3 (08:28→22:51)
[2020-04-19] MEDS: METOPROLOL TARTRATE 25 MG TAB PO SCH ×2 (08:28→22:09)
[2020-04-19] MEDS: PANTOPRAZOLE 40 MG/10 ML VIAL IVP SCH (08:29)
[2020-04-19] MEDS ORDERED: HYDROcodone/APAP 10-325MG 1 EACH TAB ONE ×2 (11:39→11:40)
[2020-04-19] MEDS ORDERED: APIXABAN 5 MG TAB ONE (11:40)
--- NOTE | 2020-04-19 13:57 | P.PN ---
Subjective Patient is admitted for further new-onset atrial fibrillation presently rate controlled echocardiac M is pending patient is nauseous patient will be switched to Protonix will continued this can you Pepcid patient does have significant leukocytosis which is believed secondary to Decadron and reactive. Patient's white blood cell count is getting better today. Patient can use to have hyperkalemia will give a dose of capsulate patient renal failure is improving at this time 04/19/2020 Patient will transfer out of cardiac floor patient is still having a lot of pain in the abdominal area secondary to abdominal metastases, as a dose of [place]. P atient remains on IV heparin as a oncology is planning on a repeat biopsy after which patient will be switched to Eliquis 5 twice a day for atrial fibrillation suspicion for PE is extremely low Constitutional: Denied any fatigue denied any fever. Cardio vascular: denied any chest pain, palpitations Gastrointestinal as having nausea and mild epigastric abdominal discomfort Pulmonary: Denied any shortness of breath cough Neurologic denied any new focal deficits All inpatient medications were reviewed and appropriate changes in these medications as dictated in the interval history and assessment and plan. Objective - Vital Signs Vital signs: Vital Signs Temp 97.4 F L 04/19/20 08:00 Pulse 81 04/19/20 08:00 Resp 18 04/19/20 08:00 BP 161/82 04/19/20 08:00 Pulse Ox 94 L 04/19/20 08:00 Intake & Output 04/18/20 04/19/20 04/19/20 18:59 06:59 18:59 Intake Total 170.049 109.761 Output Total 50 600 Balance 120.049 -600 109.761 Weight 60.3 kg Intake: Intake, IV Titration 170.049 109.761 Amount Heparin Sod,Pork in 0.45% 170.049 109.761 NaCl 25,000 unit In 0.45 % NaCl 1 250ml.bag @ 18 UNITS/KG/HR 10.916 mls/hr IV .[id number] [facility] Rx#: [id number] Output: Urine 50 600 Other: Voiding Method Bedpan # Voids 1 1 1 - Exam PHYSICAL EXAMINATION: GENERAL: The patient is alert and oriented x3, not in any acute distress. Well developed, well nourished. HEENT: Pupils are round and equally reacting to light. EOMI. No scleral icterus. No conjunctival pallor. Normocephalic, atraumatic. No pharyngeal erythema. No thyromegaly. CARDIOVASCULAR: S1 and S2 present. No murmurs, rubs, or gallops. PULMONARY: Chest is clear to auscultation, no wheezing or crackles. ABDOMEN: Soft, nontender, nondistended, normoactive bowel sounds. No palpable organomegaly. MUSCULOSKELETAL: No joint swelling or deformity. EXTREMITIES: No cyanosis, clubbing, or pedal edema. NEUROLOGICAL: Gross neurological examination did not reveal any focal deficits. Does have generalized at the weakness and does have some memory difficulties and deficits as per the patient since radiation therapy to the SKIN: No rashes. - Labs CBC & Chem 7: 04/19/20 06:27 04/19/20 06:27 Labs: Abnormal Lab Results - Last 24 Hours (Table) 04/18/20 04/19/20 04/19/20 Range/Units 17:16 06:27 06:27 WBC 39.6 H (3.8-10.6) k/uL RBC 3.26 L (3.80-5.40) m/uL Hgb 9.2 L (11.4-16.0) gm/dL Hct 30.1 L (34.0-46.0) % MCHC 30.5 L (31.0-37.0) g/dL APTT 60.8 H (22.0-30.0) sec Sodium 134 L (137-145) mmol/L Potassium 5.4 H (3.5-5.1) mmol/L Carbon Dioxide 20 L (22-30) mmol/L BUN 56 H (7-17) mg/dL Glucose 156 H (74-99) mg/dL 04/19/20 Range/Units 06:27 WBC (3.8-10.6) k/uL RBC (3.80-5.40) m/uL Hgb (11.4-16.0) gm/dL Hct (34.0-46.0) % MCHC (31.0-37.0) g/dL APTT 67.6 H (22.0-30.0) sec Sodium (137-145) mmol/L Potassium (3.5-5.1) mmol/L Carbon Dioxide (22-30) mmol/L BUN (7-17) mg/dL Glucose (74-99) mg/dL Microbiology - Last 24 Hours (Table) 04/17/20 12:14 Blood Culture - Preliminary Blood No Growth after 24 hours Assessment and Plan Plan: -New onset atrial fibrillation probably contributing to her shortness of breath: Patient converted to sinus rhythm at this time patient is rate controlled clinically doing well. He remains on IV heparin -Low possibility of PE -Acute renal failure prerenal azotemia improving at this time. -Breast cancer with metastases to brain continue with Decadron oncology evaluated the patient -Hyponatremia: Secondary to hydrocodone presently which was discontinued -Hyperkalemia secondary to lisinopril which is discontinued -Hypertension patient is presently hypotensive hold off and it was medications as mentioned above -Mildly elevated troponins probably secondary to atrial fibrillation repeat 2 more sets of troponins -Leukocytosis reactive in nature -Hyperlipidemia
--- NOTE | 2020-04-19 14:29 | P.PN ---
Subjective Progress Note Date: 04/19/20 Principal diagnosis: Breast cancer, suspicions for 2nd primary In f/u today pt cont to have SOB at rest, she is in general uncomfortable, not eating much, very weak. Objective - Vital Signs Vital signs: Vital Signs Temp 97.4 F L 04/19/20 08:00 Pulse 81 04/19/20 08:00 Resp 18 04/19/20 08:00 BP 161/82 04/19/20 08:00 Pulse Ox 94 L 04/19/20 08:00 Intake & Output 04/18/20 04/19/20 04/19/20 18:59 06:59 18:59 Intake Total 170.049 109.761 Output Total 50 600 Balance 120.049 -600 109.761 Weight 60.3 kg Intake: Intake, IV Titration 170.049 109.761 Amount Heparin Sod,Pork in 0.45% 170.049 109.761 NaCl 25,000 unit In 0.45 % NaCl 1 250ml.bag @ 18 UNITS/KG/HR 10.916 mls/hr IV .[id number] [facility] Rx#: [id number] Output: Urine 50 600 Other: Voiding Method Bedpan # Voids 1 1 1 - Constitutional General appearance: Present: cooperative, mild distress, thin - EENT Eyes: Present: anicteric sclerae, EOMI - Respiratory Respiratory: bilateral: diminished - Cardiovascular Heart sounds: normal: S1, S2 - Peripheral edema leg Peripheral Edema: bilateral: None - Gastrointestinal General gastrointestinal: Present: soft, tenderness - Musculoskeletal Musculoskeletal: Present: generalized weakness - Psychiatric Psychiatric: Present: A&O x's 3, intact judgment & insight - Labs CBC & Chem 7: 04/19/20 06:27 04/19/20 06:27 Labs: Abnormal Lab Results - Last 24 Hours (Table) 04/18/20 04/19/20 04/19/20 Range/Units 17:16 06:27 06:27 WBC 39.6 H (3.8-10.6) k/uL RBC 3.26 L (3.80-5.40) m/uL Hgb 9.2 L (11.4-16.0) gm/dL Hct 30.1 L (34.0-46.0) % MCHC 30.5 L (31.0-37.0) g/dL APTT 60.8 H (22.0-30.0) sec Sodium 134 L (137-145) mmol/L Potassium 5.4 H (3.5-5.1) mmol/L Carbon Dioxide 20 L (22-30) mmol/L BUN 56 H (7-17) mg/dL Glucose 156 H (74-99) mg/dL 04/19/20 Range/Units 06:27 WBC (3.8-10.6) k/uL RBC (3.80-5.40) m/uL Hgb (11.4-16.0) gm/dL Hct (34.0-46.0) % MCHC (31.0-37.0) g/dL APTT 67.6 H (22.0-30.0) sec Sodium (137-145) mmol/L Potassium (3.5-5.1) mmol/L Carbon Dioxide (22-30) mmol/L BUN (7-17) mg/dL Glucose (74-99) mg/dL Microbiology - Last 24 Hours (Table) 04/17/20 12:14 Blood Culture - Preliminary Blood No Growth after 24 hours Assessment and Plan (1) Breast cancer Narrative/Plan: Treatment so far, has been to brain met with stereotactic radiosurgery, no other therapy. Reinforced with pt- There is question as to if this presentation is most consistent with a hormone receptor positive ductal carcinoma. Patient has widespread metastasis in the brain, lung, liver and adrenals which is not a common presentation and in such a young patient. Initially, liver biopsy was the preferred target but, patient refused. Patient has had breast and an abdominal mass biopsy, both showing metastatic breast cancer. Dr. Pineda spoke with the patient about concerns if she may possibly have 2 malignant process is occurring at the same time-especially with patient's significant history of smoking. She verbalized understanding his concerns and is amenable to liver biopsy. Order placed for the same. Discussed case with LEXII ROSS, will plan for biopsy of the liver. Communication order sent to Nursing. Further treatment decisions to be made pending additional biopsy Current Visit: Yes Status: Acute Priority: High Code(s): C50.919 - MALIGNANT NEOPLASM OF UNSP SITE OF UNSPECIFIED FEMALE BREAST SNOMED Code(s): 960443788 (2) Pulmonary embolism Narrative/Plan: Possibly a small PE on CT. Pt could not tolerate laying for scan, so cancelled. Cont heparin drip until post biopsy. Eliquis has been ordered. Current Visit: Yes Status: Acute Priority: High Code(s): I26.99 - OTHER PULMONARY EMBOLISM WITHOUT ACUTE COR PULMONALE SNOMED Code(s): 20032051 Plan: Workup and treatment of atrial fibrillation with Cardiology. Time with Patient: Greater than 30
--- NOTE | 2020-04-19 15:06 | P.PN ---
Subjective Progress Note Date: 04/19/20 This is a pleasant 59-year-old female with history of recently diagnosed breast cancer with metastases to the brain, lung, also noted to have liver lesions, renal masses, recently underwent surgery on her brain. Was scheduled as an outpatient to see oncology, just recently in the hospital in [facility] of this year which time she received this diagnosis. Presented to the hospital with symptoms of moderate to severe shortness of breath. Her initial EKG on presentation here showed atrial fibrillation with a rapid ventricular response. Subsequent EKG showed normal sinus rhythm with nonspecific ST-T wave changes. CTA of the chest was performed which showed metastatic disease, difficult to exclude small subsegmental pulmonary embolism. Blood pressure 126/60 with a heart rate of 70, afebrile, 96% on 3 L of oxygen. White blood cell count 37.5, hemoglobin 11.5, platelet count 469. D-dimer 2.1, sodium 132, potassium 5.6, BUN 92, creatinine 1.3. Magnesium 2.4, AST 51, ALT 56, alk phos 153, troponin 0.045, BNP level 542. At the time of my examination this morning, patient's complaining of significant abdominal pain and she feels quite short of breath. She denies any palpitations, no dizziness or lightheadedness. She states that she has never been diagnosed in the past as having an irregular heartbeat. She is currently on IV heparin as well as metoprolol 25 mg one tablet by mouth twice a day. 04/19/2020 Patient was seen and examined this morning, complaining of significant abdominal pain. Has not been able to eat. Blood pressure 122/60 with a heart rate in the 70s, 97% on 3 L of oxygen. White blood cell count 39.6, hemoglobin 9.2, platelet count 339. Sodium 134, potassium 5.4, BUN 56, creatinine 0.9. TSH 0.154. Echocardiogram with Doppler study was performed which revealed an ejection fraction of greater than 55%. Objective - Vital Signs Vital signs: Vital Signs Temp 97.4 F L 04/19/20 08:00 Pulse 81 04/19/20 08:00 Resp 18 04/19/20 08:00 BP 161/82 04/19/20 08:00 Pulse Ox 94 L 04/19/20 08:00 Intake & Output 04/18/20 04/19/2004/19/20 18:59 06:59 18:59 Intake Total 170.049 109.761 Output Total 50 600 Balance 120.049 -600 109.761 Weight 60.3 kg Intake: Intake, IV Titration 170.049 109.761 Amount Heparin Sod,Pork in 0.45% 170.049 109.761 NaCl 25,000 unit In 0.45 % NaCl 1 250ml.bag @ 18 UNITS/KG/HR 10.916 mls/hr IV .[id number] [facility] Rx#: [id number] Output: Urine 50 600 Other: Voiding Method Bedpan # Voids 1 1 1 - Exam PHYSICAL EXAMINATION: GENERAL: 59-year-old female in no acute distress at the time of my examination HEENT: Head is atraumatic, normocephalic. Pupils equal, round. Sclera anicteric. Conjunctiva are clear. Mucous membranes of the mouth are moist. Neck is supple. There is no elevated jugular venous pressure. No carotid bruit is heard. HEART EXAMINATION: Heart S1, S2 normal. No murmur or gallop heard. CHEST EXAMINATION: Lungs reveal diffuse scattered wheezing throughout. Decreased air exchange. ABDOMEN: Soft, nontender. Bowel sounds are heard. No organomegaly noted. EXTREMITIES: 2+ peripheral pulses with no evidence of peripheral edema and no calf tenderness noted. NEUROLOGIC patient is awake, alert and oriented 3 . - Labs CBC & Chem 7: 04/19/20 06:27 04/19/20 06:27 Labs: Abnormal Lab Results - Last 24 Hours (Table) 04/18/20 04/19/20 04/19/20 Range/Units 17:16 06:27 06:27 WBC 39.6 H (3.8-10.6) k/uL RBC 3.26 L (3.80-5.40) m/uL Hgb 9.2 L (11.4-16.0) gm/dL Hct 30.1 L (34.0-46.0) % MCHC 30.5 L (31.0-37.0) g/dL APTT 60.8 H (22.0-30.0) sec Sodium 134 L (137-145) mmol/L Potassium 5.4 H (3.5-5.1) mmol/L Carbon Dioxide 20 L (22-30) mmol/L BUN 56 H (7-17) mg/dL Glucose 156 H (74-99) mg/dL 04/19/20 Range/Units 06:27 WBC (3.8-10.6) k/uL RBC (3.80-5.40) m/uL Hgb (11.4-16.0) gm/dL Hct (34.0-46.0) % MCHC (31.0-37.0) g/dL APTT 67.6 H (22.0-30.0) sec Sodium (137-145) mmol/L Potassium (3.5-5.1) mmol/L Carbon Dioxide (22-30) mmol/L BUN (7-17) mg/dL Glucose (74-99) mg/dL Microbiology - Last 24 Hours (Table) 04/17/20 12:14 Blood Culture - Preliminary Blood No Growth after 48 hours Assessment and Plan Plan: Assessment and plan #1 atrial fibrillation with rapid ventricular response, paroxysmal, patient currently in normal sinus rhythm. #2 recent diagnosis of breast CA with metastases to the brain, lung, liver lesions and renal masses noted. Status post brain surgery #3 hypertension #4 nicotine dependence, patient quit smoking in March #5 questionable small pulmonary embolism on CT of the chest Plan Echocardiogram with Doppler study revealed a normal left ventricular systolic function. We'll discontinue the IV heparin and start the patient on Eliquis 5 mg one tablet by mouth twice a day. DNP note has been reviewed, I agree with a documented findings and plan of care. Patient was seen and examined.
[2020-04-19] MEDS: lisinopriL 10 MG TAB PO SCH (17:57)
[2020-04-19] MEDS: LETROZOLE 2.5 MG TAB PO SCH (17:58)
[2020-04-19] MEDS: HYDROcodone/APAP 10-325MG 1 EACH TAB PO PRN (17:59)
[2020-04-19] MEDS: ATORVASTATIN 40 MG TAB PO SCH (22:09)
[2020-04-19] MEDS: OLANZapine 2.5 MG TAB PO SCH (22:09)
[2020-04-19] MEDS: HEPARIN SOD,PORK IN 0.45% NACL 25,000 UNIT in 0.45% NACL 1 250ML.BAG IV SCH (22:52)
[2020-04-20] MEDS: APIXABAN 5 MG TAB PO SCH ×2 (03:39→09:06)
[2020-04-20] MEDS: HYDROcodone/APAP 10-325MG 1 EACH TAB PO PRN (05:15)
[2020-04-20 07:08] LABS: Basophils # (A) 0.2 k/uL (0-0.2); Basophils % (A) 0 %; Eosinophils # (A) 0.1 k/uL (0-0.7); Eosinophils % (A) 0 %; HCT 28.2 % (34.0-46.0); HGB 9.2 gm/dL (11.4-16.0); Lymphocytes # (A) 1.9 k/uL (1.0-4.8); Lymphocytes % (A) 4 %; MCHC 32.5 g/dL (31.0-37.0); MCV 92.3 fL (80.0-100.0); Mean Platelet Volume 9.1; Monocytes # (A) 1.2 k/uL (0-1.0); Monocytes % (A) 3 %; Neutrophils # (A) 40.5 k/uL (1.3-7.7); Neutrophils % (A) 92 %; Platelet Count 356 k/uL (150-450); RBC 3.06 m/uL (3.80-5.40); RDW 14.8 % (11.5-15.5); WBC 44.1 k/uL (3.8-10.6)
[2020-04-20] MEDS: ONDANSETRON 4 MG TAB PO PRN (07:25)
[2020-04-20] MEDS: PANTOPRAZOLE 40 MG/10 ML VIAL IVP SCH (07:25)
[2020-04-20 07:45] LABS: Calcium 10.3 mg/dL (8.4-10.2)
[2020-04-20 07:52] LABS: Potassium 6.1 mmol/L (3.5-5.1)
[2020-04-20] MEDS ORDERED: MORPHINE SULFATE 2 MG/ML SYRINGE IVP STA ×2 (08:42→10:34)
[2020-04-20] MEDS ORDERED: INSULIN REGULAR 100 UNIT/ML VIAL IV ONE (08:50)
[2020-04-20] MEDS ORDERED: DEXTROSE 50% SYRINGE 50 ML IVP STA (08:51)
[2020-04-20] MEDS ORDERED: lisinopriL 10 MG TAB PO SCH (09:00)
[2020-04-20] MEDS ORDERED: LETROZOLE 2.5 MG TAB PO SCH (09:00)
[2020-04-20] MEDS: dexAMETHasone 4 MG TAB PO SCH (09:06)
[2020-04-20] MEDS: METOPROLOL TARTRATE 25 MG TAB PO SCH (09:06)
[2020-04-20] MEDS: lisinopriL 10 MG TAB PO SCH (09:06)
[2020-04-20] MEDS: LETROZOLE 2.5 MG TAB PO SCH (09:06)
[2020-04-20] MEDS: ALBUTEROL NEBULIZED 2.5 MG/3 ML INHALATION PRN ×2 (09:22→12:16)
[2020-04-20 10:08] LABS: Glucose,Whole Blood 310 mg/dL (75-99)
[2020-04-20 11:18] LABS: Calcium 10.2 mg/dL (8.4-10.2); Potassium 5.4 mmol/L (3.5-5.1)
--- NOTE | 2020-04-20 11:21 | XR ---
EXAMINATION TYPE: XR chest 1V portable DATE OF EXAM: 04/20/2020 HISTORY: Shortness of breath. COMPARISON: 04/02/2020 TECHNIQUE: Single view of the chest is submitted. FINDINGS: Demonstrated are scattered senescent parenchymal change. Bilateral pulmonary nodules and masses identified compatible metastatic disease. No significant hines e appreciated in the interval. The heart is stable. Hilar and mediastinal structures are within normal limits. Degenerative changes are seen of the dorsal spine. IMPRESSION: 1. Bilateral pulmonary nodules and masses identified compatible metastatic disease. No significant c hange appreciated in the interval.
--- NOTE | 2020-04-20 11:37 | P.PN ---
Subjective Progress Note Date: 04/20/20 Principal diagnosis: Breast cancer, suspicions for 2nd primary In f/u today pt is showing symptoms of cardio/respiratory failure, severe anxiety. Internal Medicine INDIVIDUAL PENSION CONSULTANT confirmed with the patient does not wish to have extraordinary life-saving measures, no code. Objective - Vital Signs Vital signs: Vital Signs Temp 97.1 F L 04/20/20 00:08 Pulse 108 H 04/20/20 09:30 Resp 18 04/20/20 03:23 BP 100/69 04/20/20 00:08 Pulse Ox 93 L 04/20/20 07:48 Intake & Output 04/19/20 04/20/20 04/20/20 18:59 06:59 18:59 Intake Total 166.166 Output Total 412 Balance 166.166 -412 Weight 62.5 kg Intake: Intake, IV Titration 166.166 Amount Heparin Sod,Pork in 0.45% 166.166 NaCl 25,000 unit In 0.45 % NaCl 1 250ml.bag @ 18 UNITS/KG/HR 10.916 mls/hr IV .[id number] [facility] Rx#: [id number] Output: Urine 412 Other: Voiding Method Bedpan # Voids 5 1 - Constitutional Constitutional Comment(s): opens eyes to voice General appearance: Present: severe distress, thin - Respiratory Details: Increased respiratory rate Respiratory: bilateral: wheezing (scattered) - Cardiovascular Heart sounds: normal: S1, S2 Abnormal Heart Sounds: Absent: systolic murmur, diastolic murmur, rub, S3 Gallop, S4 Gallop, click, other - Peripheral edema leg Peripheral Edema: bilateral: None - Gastrointestinal General gastrointestinal: Present: normal bowel sounds - Integumentary Integumentary: Present: pale - Labs CBC & Chem 7: 04/20/20 06:33 04/20/20 10:38 Labs: Abnormal Lab Results - Last 24 Hours (Table) 04/17/20 04/18/20 04/19/20 Range/Units 10:35 09:35 15:48 WBC 37.5 H (3.8-10.6) k/uL RBC (3.80-5.40) m/uL Hgb (11.4-16.0) gm/dL Hct (34.0-46.0) % Plt Count 469 H (150-450) k/uL Neutrophils # 34.2 H (1.3-7.7) k/uL Monocytes # 1.7 H (0-1.0) k/uL APTT 95.0 H 51.0 H (22.0-30.0) sec Sodium (137-145) mmol/L Potassium (3.5-5.1) mmol/L Carbon Dioxide (22-30) mmol/L BUN (7-17) mg/dL Creatinine (0.52-1.04) mg/dL Glucose (74-99) mg/dL POC Glucose (mg/dL) (75-99) mg/dL Calcium (8.4-10.2) mg/dL 04/20/20 04/20/20 04/20/20 Range/Units 06:33 06:33 06:33 WBC 44.1 H (3.8-10.6) k/uL RBC 3.06 L (3.80-5.40) m/uL Hgb 9.2 L (11.4-16.0) gm/dL Hct 28.2 L (34.0-46.0) % Plt Count (150-450) k/uL Neutrophils # 40.5 H (1.3-7.7) k/uL Monocytes # 1.2 H (0-1.0) k/uL APTT 21.0 L (22.0-30.0) sec Sodium 134 L (137-145) mmol/L Potassium 6.1 H* (3.5-5.1) mmol/L Carbon Dioxide 20 L (22-30) mmol/L BUN 77 H (7-17) mg/dL Creatinine 1.40 H (0.52-1.04) mg/dL Glucose 182 H (74-99) mg/dL POC Glucose (mg/dL) (75-99) mg/dL Calcium 10.3 H (8.4-10.2) mg/dL 04/20/20 04/20/20 Range/Units 10:05 10:38 WBC (3.8-10.6) k/uL RBC (3.80-5.40) m/uL Hgb (11.4-16.0) gm/dL Hct (34.0-46.0) % Plt Count (150-450) k/uL Neutrophils # (1.3-7.7) k/uL Monocytes # (0-1.0) k/uL APTT (22.0-30.0) sec Sodium 133 L (137-145) mmol/L Potassium 5.4 H (3.5-5.1) mmol/L Carbon Dioxide 16 L (22-30) mmol/L BUN 84 H (7-17) mg/dL Creatinine 1.64 H (0.52-1.04) mg/dL Glucose 261 H (74-99) mg/dL POC Glucose (mg/dL) 310 H (75-99) mg/dL Calcium (8.4-10.2) mg/dL Microbiology - Last 24 Hours (Table) 04/17/20 12:14 Blood Culture - Preliminary Blood No Growth after 48 hours - Imaging and Cardiology Chest x-ray: report reviewed Assessment and Plan (1) Breast cancer Narrative/Plan: Treatment so far, has been to brain met with stereotactic radiosurgery, AI started yesterday. Discussed case with IR , plan is for biopsy of the liver- if pt able. Current Visit: Yes Status: Acute Priority: High Code(s): C50.919 - MALIGNANT NEOPLASM OF UNSP SITE OF UNSPECIFIED FEMALE BREAST SNOMED Code(s): 773217613 (2) Pulmonary embolism Narrative/Plan: Possibly a small PE on CT. Pt could not tolerate laying for VQ scan, so cancelled. Recommendation was to cont heparin drip until post biopsy but, Eliquis given at midnight. Have requested heparin drip be resumed at noon today. Current Visit: Yes Status: Acute Priority: High Code(s): I26.99 - OTHER PULMONARY EMBOLISM WITHOUT ACUTE COR PULMONALE SNOMED Code(s): 26128607 Plan: Workup and treatment of atrial fibrillation with Cardiology. Case discussed with Internal Medicine. Patient does seem to be experiencing cardio/respiratory failure. From an Oncology standpoint patient is a reasonable candidate for hospice based on co-morbidities, not necessarily malignancy. The patient has hormone receptor positive breast cancer that can have significant l krishan expectancy and a decent quality of life with treatment. Her current condition is not felt to be related to malignancy. Pt is on non-rebreather currently and code status has been updated per IM to reflect pt wishes.
[2020-04-20] MEDS ORDERED: HEPARIN SODIUM,PORCINE 5,000 UNIT/ML 1 ML VIAL IV PRN (12:09)
[2020-04-20] MEDS ORDERED: HEPARIN SOD,PORK IN 0.45% NACL 25,000 UNIT in 0.45% NACL 1 250ML.BAG IV SCH (12:15)
[2020-04-20 12:20] LABS: HCT 28.4 % (34.0-46.0); HGB 8.9 gm/dL (11.4-16.0); Hypochromasia Moderate; MCH 30.1 pg (25.0-35.0); MCHC 31.5 g/dL (31.0-37.0); MCV 95.6 fL (80.0-100.0); Mean Platelet Volume 9.3; Platelet Count 362 k/uL (150-450); RBC 2.97 m/uL (3.80-5.40); RDW 14.7 % (11.5-15.5)
[2020-04-20] MEDS ORDERED: METOPROLOL TARTRATE 50 MG TAB PO STA (12:20)
--- NOTE | 2020-04-20 12:21 | P.PN ---
Subjective This is a pleasant 59-year-old female recently diagnosed with breast cancer with metastasis to the brain and lung with new noted lesions on the liver and kidney. We're following secondary to new onset atrial fibrillation. She has also been treated for possible small subsegmental pulmonary embolism. She was scheduled to undergo liver biopsy today. She is seen and examined sitting up in bed. She is quite dyspneic and complaining of significant abdominal discomfort. Blood pressure 100/69, heart rate 108, maintaining oxygen satura tion on nasal cannula. Laboratory data reviewed, WBC 44, hemoglobin 9.2, platelets 356, sodium 133, potassium this morning was 6.1 after receiving treatment went down to 5.4, creatinine 1.64. Currently maintained on lisinopril 20 mg daily, atorvastatin 40 mg at bedtime, Eliquis 5 mg twice a day and Lopressor 25 mg twice a day. Echocardiogram obtained on this admission reveals preserved LV systolic function with ejection fraction greater than 55%. NECK: Supple without JVD or thyromegaly. LUNGS: Significant wheezing auscultated throughtout, no rales or rhonchi. Dyspneic at rest. HEART: Tachycardic. Regular rate and rhythm without murmurs, rubs or gallops. S1 and S2 heard. EXTREMITIES: Normal range of motion, no edema. No clubbing or cyanosis. Peripheral pulses intact. ASSESSMENT New onset paroxysmal atrial fibrillation with rapid ventricular response, currently maintaining sinus mechanism. Eliquis initiated yesterday per CONOR Robertson. Hyperkalemia Leukocytosis Anemia Breast cancer with metastasis to the brain, liver, lung and new renal mass Hypertension Chronic nicotine dependence PLAN Hold Eliquis pending liver biopsy scheduled for today. If postponed we will resume heparin infusion. Obtain EKG. Hold lisinopril given significant hyperkalemia. Further recommendations to follow. Nurse Practitioner note has been reviewed, I agree with a documented findings and plan of care. Patient was seen and examined. Objective - Vital Signs Vital signs: Vital Signs Temp 97.1 F L 04/20/20 00:08 Pulse 108 H 04/20/20 09:30 Resp 18 04/20/20 03:23 BP 100/69 04/20/20 00:08 Pulse Ox 93 L 04/20/20 07:48 Intake & Output 04/19/20 04/20/20 04/20/20 18:59 06:59 18:59 Intake Total 166.166 Output Total 412 Balance 166.166 -412 Weight 62.5 kg Intake: Intake, IV Titration 166.166 Amount Heparin Sod,Pork in 0.45% 166.166 NaCl 25,000 unit In 0.45 % NaCl 1 250ml.bag @ 18 UNITS/KG/HR 10.916 mls/hr IV .[id number] [facility] Rx#: [id number] Output: Urine 412 Other: Voiding Method Bedpan # Voids 5 1 - Labs CBC & Chem 7: 04/20/20 06:33 04/20/20 10:38 Labs: Abnormal Lab Results - Last 24 Hours (Table) 04/17/20 04/18/20 04/19/20 Range/Units 10:35 09:35 15:48 WBC 37.5 H (3.8-10.6) k/uL RBC (3.80-5.40) m/uL Hgb (11.4-16.0) gm/dL Hct (34.0-46.0) % Plt Count 469 H (150-450) k/uL Neutrophils # 34.2 H (1.3-7.7) k/uL Monocytes # 1.7 H (0-1.0) k/uL APTT 95.0 H 51.0 H (22.0-30.0) sec Sodium (137-145) mmol/L Potassium (3.5-5.1) mmol/L Carbon Dioxide (22-30) mmol/L BUN (7-17) mg/dL Creatinine (0.52-1.04) mg/dL Glucose (74-99) mg/dL POC Glucose (mg/dL) (75-99) mg/dL Calcium (8.4-10.2) mg/dL 04/20/20 04/20/20 04/20/20 Range/Units 06:33 06:33 06:33 WBC 44.1 H (3.8-10.6) k/uL RBC 3.06 L (3.80-5.40) m/uL Hgb 9.2 L (11.4-16.0) gm/dL Hct 28.2 L (34.0-46.0) % Plt Count (150-450) k/uL Neutrophils # 40.5 H (1.3-7.7) k/uL Monocytes # 1.2 H (0-1.0) k/uL APTT 21.0 L (22.0-30.0) sec Sodium 134 L (137-145) mmol/L Potassium 6.1 H* (3.5-5.1) mmol/L Carbon Dioxide 20 L (22-30) mmol/L BUN 77 H (7-17) mg/dL Creatinine 1.40 H (0.52-1.04) mg/dL Glucose 182 H (74-99) mg/dL POC Glucose (mg/dL) (75-99) mg/dL Calcium 10.3 H (8.4-10.2) mg/dL 04/20/20 04/20/20 Range/Units 10:05 10:38 WBC (3.8-10.6) k/uL RBC (3.80-5.40) m/uL Hgb (11.4-16.0) gm/dL Hct (34.0-46.0) % Plt Count (150-450) k/uL Neutrophils # (1.3-7.7) k/uL Monocytes # (0-1.0) k/uL APTT (22.0-30.0) sec Sodium 133 L (137-145) mmol/L Potassium 5.4 H (3.5-5.1) mmol/L Carbon Dioxide 16 L (22-30) mmol/L BUN 84 H (7-17) mg/dL Creatinine 1.64 H (0.52-1.04) mg/dL Glucose 261 H (74-99) mg/dL POC Glucose (mg/dL) 310 H (75-99) mg/dL Calcium (8.4-10.2) mg/dL Microbiology - Last 24 Hours (Table) 04/17/20 12:14 Blood Culture - Preliminary Blood No Growth after 48 hours
[2020-04-20 12:30] LABS: INR 1.2 (<1.2); Partial Thromboplastin Time 23.2 sec (22.0-30.0); Prothrombin Time 12.4 sec (9.0-12.0)
[2020-04-20] MEDS ORDERED: SODIUM CHLORIDE 0.9% 500 ML 500 ML IV ONE (12:38)
[2020-04-20] MEDS ORDERED: MORPHINE SULFATE 2 MG/ML SYRINGE IVP PRN (13:24)
[2020-04-20] MEDS ORDERED: LORazepam 2 MG/ML INJ IV PRN (13:24)
[2020-04-20 13:26] LABS: Band Neutrophils % 1 %; Metamyelocytes # (M) 0.49 k/uL (0); Metamyelocytes % 1 %; Neutrophils % (M) 86 %; Nucleated Red Blood Cells 1 /100 WBC (0-0); Total Cells Counted 200
[2020-04-20 13:27] LABS: Lymphocytes # (M) 4.89 k/uL (1.0-4.8); Monocytes # (M) 1.47 k/uL (0-1.0); WBC 48.9 k/uL (3.8-10.6)
[2020-04-20 13:31] LABS: Poikilocytosis (M) Present
[2020-04-20 13:32] LABS: Anisocytosis (M) Present
[2020-04-20] MEDS ORDERED: PIPERACILLIN-TAZOBACTAM 3.375 GM in SODIUM CHLORIDE 0.9% 100 ML IVPB SCH (14:00)
--- NOTE | 2020-04-20 15:07 | P.PN ---
Subjective Progress Note Date: 04/20/20 Principal diagnosis: Patient is admitted for further new-onset atrial fibrillation presently rate controlled echocardiac M is pending patient is nauseous patient will be switched to Protonix will continued this can you Pepcid patient does have significant leukocytosis which is believed secondary to Decadron and reactive. Patient's white blood cell count is getting better today. Patient can use to have hyperkalemia will give a dose of capsulate patient renal failure is improving at this time 04/19/2020 Patient will transfer out of cardiac floor patient is still having a lot of pain in the abdominal area secondary to abdominal metastases, as a dose of [place]. Patient remains on IV heparin as a oncology is planning on a repeat biopsy after which patient will be switched to Eliquis 5 twice a day for atrial fibrillation suspicion for PE is extremely low Constitutional: Denied any fatigue denied any fever. Cardio vascular: denied any chest pain, palpitations Gastrointestinal as having nausea and mild epigastric abdominal discomfort Pulmonary: Denied any shortness of breath cough Neurologic denied any new focal deficits 04/20/2020 Patient is seen and evaluated in follow-up and is currently having chest pain and extreme shortness of breath and has been placed on a nonrebreather. An A team was Called. Chest x-ray this morning shows Bilateral pulmonary nodules and masses identified compatible with metastatic disease and no significant change from previous. EKG was obtained patient is currently in atrial fibrillation with RVR although blood pressure is extremely low. Patient will be given a liter of fluids. Discussed with the patient at length about CODE STATUS and patient states she does not want to be resuscitated or intubated and would like to be a no code. Also discussed with the patient about further treatment and patient is not sure about proceeding with any further treatment at this time. Patient is agreeable to hospice consult. Daughter Sheri notified and updated and will be coming to the hospital shortly. Patient continues to be extremely anxious and also having nausea with no reports of vomiting. Patient states she is very tire d and weak and uncomfortable at this time. Patient was also given a low-dose of morphine as she is unable to tolerate oral pain medications at this time. [facility] hospice consulted and will be visiting the patient today. Cardiology also following. Discussed the case with oncology and made them aware of patient's wishes. Patient is appropriate for hospice at this time. Objective - Vital Signs Vital signs: Vital Signs Temp 97.1 F L 04/20/20 00:08 Pulse 108 H 04/20/20 09:30 Resp 18 04/20/20 03:23 BP 100/69 04/20/20 00:08 Pulse Ox 93 L 04/20/20 07:48 Intake & Output 04/19/20 04/20/20 04/20/20 18:59 06:59 18:59 Intake Total 166.166 Output Total 412 Balance 166.166 -412 Weight 62.5 kg Intake: Intake, IV Titration 166.166 Amount Heparin Sod,Pork in 0.45% 166.166 NaCl 25,000 unit In 0.45 % NaCl 1 250ml.bag @ 18 UNITS/KG/HR 10.916 mls/hr IV .[id number] [facility] Rx#: [id number] Output: Urine 412 Other: Voiding Method Bedpan Bedpan # Voids 5 1 0 - Exam GENERAL: The patient is alert and oriented x3, in acute Respiratory distress. Well developed, well nourished. HEENT: Pupils are round and equally reacting to light. EOMI. No scleral icterus. No conjunctival pallor. Normocephalic, atraumatic. No pharyngeal erythema. No thyromegaly. CARDIOVASCULAR: S1 and S2 present. No murmurs, rubs, or gallops. PULMONARY: Diminished breath sounds bilaterally with no wheezing or rhonchi noted. ABDOMEN: Soft, Extremely tender upon palpation in all 4 quadrants, nondistended, normoactive bowel sounds. No palpable organomegaly. MUSCULOSKELETAL: No joint swelling or deformity. EXTREMITIES: No cyanosis, clubbing, or pedal edema. NEUROLOGICAL: Gross neurological examination did not reveal any focal deficits. Does have generalized at the weakness and does have some memory difficulties and deficits as per the patient since radiation therapy To the brain SKIN: No rashes. - Labs CBC & Chem 7: 04/20/20 10:38 04/20/20 10:38 Labs: Abnormal Lab Results - Last 24 Hours (Table) 04/17/20 04/18/20 04/19/20 Range/Units 10:35 09:35 15:48 WBC 37.5 H (3.8-10.6) k/uL RBC (3.80-5.40) m/uL Hgb (11.4-16.0) gm/dL Hct (34.0-46.0) % Plt Count 469 H (150-450) k/uL Neutrophils # 34.2 H (1.3-7.7) k/uL Neutrophils # (Manual) (1.3-7.7) k/uL Lymphocytes # (Manual) (1.0-4.8) k/uL Monocytes # 1.7 H (0-1.0) k/uL Monocytes # (Manual) (0-1.0) k/uL Metamyelocytes # (Man) (0) k/uL Nucleated RBCs (0-0) /100 WBC PT (9.0-12.0) sec INR (<1.2) APTT 95.0 H 51.0 H (22.0-30.0) sec Sodium (137-145) mmol/L Potassium (3.5-5.1) mmol/L Carbon Dioxide (22-30) mmol/L BUN (7-17) mg/dL Creatinine (0.52-1.04) mg/dL Glucose (74-99) mg/dL POC Glucose (mg/dL) (75-99) mg/dL Calcium (8.4-10.2) mg/dL 04/20/20 04/20/20 04/20/20 Range/Units 06:33 06:33 06:33 WBC 44.1 H (3.8-10.6) k/uL RBC 3.06 L (3.80-5.40) m/uL Hgb 9.2 L (11.4-16.0) gm/dL Hct 28.2 L (34.0-46.0) % Plt Count (150-450) k/uL Neutrophils # 40.5 H (1.3-7.7) k/uL Neutrophils # (Manual) (1.3-7.7) k/uL Lymphocytes # (Manual) (1.0-4.8) k/uL Monocytes # 1.2 H (0-1.0) k/uL Monocytes # (Manual) (0-1.0) k/uL Metamyelocytes # (Man) (0) k/uL Nucleated RBCs (0-0) /100 WBC PT (9.0-12.0) sec INR (<1.2) APTT 21.0 L (22.0-30.0) sec Sodium 134 L (137-145) mmol/L Potassium 6.1 H* (3.5-5.1) mmol/L Carbon Dioxide 20 L (22-30) mmol/L BUN 77 H (7-17) mg/dL Creatinine 1.40 H (0.52-1.04) mg/dL Glucose 182 H (74-99) mg/dL POC Glucose (mg/dL) (75-99) mg/dL Calcium 10.3 H (8.4-10.2) mg/dL 04/20/20 04/20/20 04/20/20 Range/Units 10:05 10:38 10:38 WBC 48.9 H (3.8-10.6) k/uL RBC 2.97 L (3.80-5.40) m/uL Hgb 8.9 L (11.4-16.0) gm/dL Hct 28.4 L (34.0-46.0) % Plt Count (150-450) k/uL Neutrophils # (1.3-7.7) k/uL Neutrophils # (Manual) 42.50 H (1.3-7.7) k/uL Lymphocytes # (Manual) 4.89 H (1.0-4.8) k/uL Monocytes # (0-1.0) k/uL Monocytes # (Manual) 1.47 H (0-1.0) k/uL Metamyelocytes # (Man) 0.49 H (0) k/uL Nucleated RBCs 1 H (0-0) /100 WBC PT (9.0-12.0) sec INR (<1.2) APTT (22.0-30.0) sec Sodium 133 L (137-145) mmol/L Potassium 5.4 H (3.5-5.1) mmol/L Carbon Dioxide 16 L (22-30) mmol/L BUN 84 H (7-17) mg/dL Creatinine 1.64 H (0.52-1.04) mg/dL Glucose 261 H (74-99) mg/dL POC Glucose (mg/dL) 310 H (75-99) mg/dL Calcium (8.4-10.2) mg/dL 04/20/20 Range/Units 10:38 WBC (3.8-10.6) k/uL RBC (3.80-5.40) m/uL Hgb (11.4-16.0) gm/dL Hct (34.0-46.0) % Plt Count (150-450) k/uL Neutrophils # (1.3-7.7) k/uL Neutrophils # (Manual) (1.3-7.7) k/uL Lymphocytes # (Manual) (1.0-4.8) k/uL Monocytes # (0-1.0) k/uL Monocytes # (Manual) (0-1.0) k/uL Metamyelocytes # (Man) (0) k/uL Nucleated RBCs (0-0) /100 WBC PT 12.4 H (9.0-12.0) sec INR 1.2 H (<1.2) APTT (22.0-30.0) sec Sodium (137-145) mmol/L Potassium (3.5-5.1) mmol/L Carbon Dioxide (22-30) mmol/L BUN (7-17) mg/dL Creatinine (0.52-1.04) mg/dL Glucose (74-99) mg/dL POC Glucose (mg/dL) (75-99) mg/dL Calcium (8.4-10.2) mg/dL Microbiology - Last 24 Hours (Table) 04/17/20 12:14 Blood Culture - Preliminary Blood No Growth after 72 hours Assessment and Plan Assessment: -New onset atrial fibrillation probably contributing to her shortness of breath: Patient currently back in atrial fibrillation with RVR although blood pressure continues to be low and unable to tolerate metoprolol. -Low possibility of PE, Patient currently maintained on heparin drip. Unable to tolerate the VQ scan and was canceled. -Acute renal failure prerenal azotemia, Worsening, current creatinine is 1.64. 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 Potassium this morning is 6.1 and was given dextrose with insulin and repeat is 5.4. -Hypertension patient is presently hypotensive hold off and it was medications as mentioned above -Mildly elevated troponins probably secondary to atrial fibrillation repeat 2 more sets of troponins -Leukocytosis reactive in nature -Hyperlipidemia Plan: Continue current medications, management, and symptomatic treatment. A team was called today for respiratory distress and chest pain. EKG showing atrial fibrillation and RVR and cardiology is following. Repeat chest x-ray done showing no real change from previous x-ray. Patient is currently on a nonrebreather and continues to have low blood pressures. Patient wishes to be a no code and is agreeable to hospice consultation. Patient feels she does not want further treatment at this time. Oncology and cardiology are following. [facility] consulted. Daughter Sheri was talked to detail per the patient's wishes about treatment plan and will be coming to the hospital today. Patient's white count continues to be elevated and is currently 48.9. Hemoglobin is 8.9. Sodium is 133. Creatinine has worsened and is 1.64. Patient's Oral intake continues to be extremely poor. Patient is having an extreme amount of discomfort in her abdomen. Patient was scheduled to undergo a VQ scan and possible biopsy was unable to tolerate. Oncology is aware. As mentioned previously patient will be meeting with hospice today. Further recommendations to follow. Prognosis is extremely guarded.
[2020-04-21 07:58] VITALS: BP 68/50; PULSE 150; RESP 22; TEMP 97.1
--- NOTE | 2020-04-21 08:47 | P.DS ---
Providers Date of admission: 04/17/20 13:00 Expected date of discharge: 04/21/20 Attending physician: Connie Rehman Consults: 04/17/20 12:59 Consult Physician Urgent Consulting Provider: [facility] Consult Reason/Comments: A. fib with rapid ventricular response Do you want consulting provider notified?: Yes Consult Physician Urgent Consulting Provider: José Miguel Pineda Consult Reason/Comments: Metastatic cancer Do you want consulting provider notified?: Yes Primary care physician: Andres Underwood Hospital Course: Final diagnosis -New onset atrial fibrillation probably contributing to her shortness of breath -Low possibility of PE -Breast cancer with metastases to brain -Hyponatremia: Secondary to hydrocodone -Hyperkalemia secondary to lisinopril -Hypertension patient is presently hypotensive -Mildly elevated troponins probably secondary to atrial fibrillation -Leukocytosis reactive in nature -Hyperlipidemia Discharge disposition Patient is being transferred to hospice [facility] with [facility]. Please refer to previous HPI Patient Condition at Discharge: Poor Plan - Discharge Summary New Discharge Prescriptions: No Action Atorvastatin [Lipitor] 40 mg PO HS Lisinopril-Hctz 20-25 mg [Zestoretic 20-25] 1 tab PO DAILY Albuterol Sulfate [Albuterol Sulfate Hfa] 2 puff INHALATION RT-Q4H PRN PRN Reason: Shortness Of Breath Or Wheezing Ondansetron HCl [Zofran] 4 mg PO Q4H PRN PRN Reason: Nausea And Vomiting Dexamethasone 4 mg PO TID #90 tablet Omeprazole [PriLOSEC] 40 mg PO DAILY #30 cap OLANZapine [ZyPREXA] 2.5 mg PO HS #30 tablet Benzonatate [Tessalon Perles] 100 mg PO TID PRN PRN Reason: Cough Discharge Medication List Atorvastatin [Lipitor] 40 mg PO HS 03/27/20 [History] Lisinopril-Hctz 20-25 mg [Zestoretic 20-25] 1 tab PO DAILY 03/27/20 [History] Albuterol Sulfate [Albuterol Sulfate Hfa] 2 puff INHALATION RT-Q4H PRN 04/02/20 [History] Ondansetron HCl [Zofran] 4 mg PO Q4H PRN 04/02/20 [History] Dexamethasone 4 mg PO TID #90 tablet 04/04/20 [Rx] OLANZapine [ZyPREXA] 2.5 mg PO HS #30 tablet 04/04/20 [Rx] Omeprazole [PriLOSEC] 40 mg PO DAILY #30 cap 04/04/20 [Rx] Benzonatate [Tessalon Perles] 100 mg PO TID PRN 04/17/20 [History] Follow up Appointment(s)/Referral(s): Nonstaff,Physician [REFERRING] - 1-2 days Karlo Cui MD [STAFF PHYSICIAN] - 2 Weeks Activity/Diet/Wound Care/Special Instructions: Patient is signing on with [facility] GIP Discharge Disposition: HOME WITH HOSPICE
--- NOTE | 2020-04-21 11:44 | CDI ---
Documentation Clarification Form Date: 04/21/20 From: Kasie Colin CCS Phone: If you have a question about this query, please contact Klarissa Rosario, Cigarette Filter Inspector at [phone] between 8am and 5pm. Admit Date: 04/17/20 Discharge Date:04/20/20 Patient Name: Niecy Reich Visit Number: [id number] ATTENTION: The Clinical Documentation Specialists (CDI) and [facility] Coding Staff appreciate your assistance in clarifying documentation. Please respond to the clarification below the line at the bottom and electronically sign. The CDI & [facility] Coding staff will review the response and follow-up if needed. Please note: Queries are made part of the Legal Health Record. If you have any questions, please contact the author of this message via ITS. Dear Dr. Rehman, Progress note 04/20 documents: The patient is alert and oriented x3, in acute Respiratory distress. A team was called today for respiratory distress and chest pain. In f/u today pt is showing symptoms of cardio/respiratory failure History/Risk Factors: Breast CA w/ mets to lungs, liver, brain Tobacco use: Quit in March 2020 Clinical Indicators: Acute respiratory distress Vital signs: O2 Sat 90, 92, 93 Lung/Breathing assessment: Increased respiratory rate Treatment: Oxygen Nasal Cannula 2 lpm Breathing tx: Hand nebulizer In your professional opinion, can you please clarify if these findings signify one of the following conditions? Acute Respiratory Failure ( please specify with hypoxia, hypercapnia) Acute on Chronic Respiratory Failure Chronic Respiratory Failure Acute Respiratory Distress Cardio/ Respiratory Failure Other Diagnosis, please specify Unable to determine _Acute Respiratory Insufficiency MTDD
== END 2020-04-20 16:58 | disposition hospice, home (50) | DRG 308 ==
LOC: EC 10:11 → 3SCARD 13:00 → 4SSUR 04-20 00:11
PROVIDERS: ADMIT Internal Medicine; ATTEND Internal Medicine
DX: I48.0 Paroxysmal atrial fibrillation (principal); I26.99 Other pulmonary embolism without acute cor pulmonale; N17.9 Acute kidney failure, unspecified; C78.02 Secondary malignant neoplasm of left lung; C78.01 Secondary malignant neoplasm of right lung; C79.72 Secondary malignant neoplasm of left adrenal gland; C79.71 Secondary malignant neoplasm of right adrenal gland; C79.00 Secondary malignant neoplasm of unspecified kidney and renal pelvis; E87.1 Hypo-osmolality and hyponatremia; C79.31 Secondary malignant neoplasm of brain; C78.7 Secondary malignant neoplasm of liver and intrahepatic bile duct; Z11.59 Encounter for screening for other viral diseases; Z66 Do not resuscitate; Z51.5 Encounter for palliative care; I95.9 Hypotension, unspecified; C50.911 Malignant neoplasm of unspecified site of right female breast; I10 Essential (primary) hypertension; E78.5 Hyperlipidemia, unspecified; E87.5 Hyperkalemia; R79.89 Other specified abnormal findings of blood chemistry; D72.829 Elevated white blood cell count, unspecified; R06.89 Other abnormalities of breathing; G89.3 Neoplasm related pain (acute) (chronic); F41.1 Generalized anxiety disorder; D63.0 Anemia in neoplastic disease; T38.0X5A Adverse effect of glucocorticoids and synthetic analogues, initial encounter; T46.4X5A Adverse effect of angiotensin-converting-enzyme inhibitors, initial encounter; I25.2 Old myocardial infarction; Z79.899 Other long term (current) drug therapy; Z98.890 Other specified postprocedural states; Z87.01 Personal history of pneumonia (recurrent); Z87.891 Personal history of nicotine dependence; Z17.0 Estrogen receptor positive status [ER+]; Z88.8 Allergy status to other drugs, medicaments and biological substances; Z82.49 Family history of ischemic heart disease and other diseases of the circulatory system; Z83.3 Family history of diabetes mellitus
CPT/HCPCS: 36415; 71045; 71275; 80048; 80053; 83605; 83735; 83880; 84443; 84484; 85025; 85027; 85379; 85610; 85730; 87040; 93005; 93306; 94640; 96361; 96365; 96366; 96375; 96376; 99291

== ENCOUNTER 2020-04-20 15:34 | Inpatient (IN) | payer MEDICAID ==
[2020-04-20] MEDS ORDERED: ACETAMINOPHEN SUPPOSITORY 650 MG SUPP RECTAL PRN (15:41)
[2020-04-20] MEDS ORDERED: ONDANSETRON 4 MG/2 ML VIAL IVP PRN (15:41)
[2020-04-20] MEDS ORDERED: LORazepam 2 MG/ML INJ IV PRN (15:41)
[2020-04-20] MEDS: MORPHINE SULFATE 4 MG/ML SYRINGE IV PRN ×2 (19:43→22:05)
[2020-04-20] MEDS: ATROPINE OPHTH SOLN 1% 5ML BTL SUBLINGUAL PRN (22:02)
[2020-04-20] MEDS ORDERED: SCOPOLAMINE 1.5MG/72HR PATCH TRANSDERM SCH (22:30)
[2020-04-21] MEDS: MORPHINE SULFATE 4 MG/ML SYRINGE IV PRN ×3 (04:58→14:51)
[2020-04-21] MEDS: ATROPINE OPHTH SOLN 1% 5ML BTL SUBLINGUAL PRN (04:59)
--- NOTE | 2020-04-21 08:41 | P.HPIM ---
History of Present Illness H&P Date: 04/21/20 This is a 59-year-old female who was recently admitted with complaints of shortness of breath and generalized body aches and was being closely monitored. Patient has a history of breast cancer with metastasis to the brain and has recently undergone radiation therapy. During hospitalization admission patient was found to be hyperkalemic with acute renal failure. Patient underwent a CAT scan of the chest which showed metastatic disease and a very small segment with the possibility of PE and was initiated on a heparin drip. Patient was also found to be in atrial fibrillation with RVR and cardiology was evaluating the patient. Patient underwent echo showing systolic function normal with an EF greater than 55% with some mild mitral and tricuspid regurgitation present with no pulmonic regurgitation or pericardial effusion present. Patient continued to be severely dyspneic and was clinically deteriorating and continue to have chest pain as well. Patient was found to be back in A. fib with RVR and continued low blood pressures. Patient discussed the change in CODE STATUS and did not wish to be intubated or receive any CPR if necessary. Patient continued to deteriorate and in a team was called and patient made the choice to discuss with her family and meet with hospice. Patient did not want further treatment and would like to be made comfortable. Patient met with [facility] hospice and is being made hospice with comfort care measures only GIP. Review of Systems Constitutional: Reports fatigue, Reports poor appetite, Reports weakness Eyes: denies blurred vision, denies decreased vision, denies irritation, denies itching, denies pain Ears: deny: decreased hearing, ear discharge, earache, tinnitus Ears, nose, mouth and throat: Denies as per HPI, Denies ant. neck pain, Denies bleeding gums, Denies dental pain, Denies dysphagia, Denies epistaxis, Denies headache, Denies hoarseness, Denies mouth pain, Denies nasal congestion, Denies nasal discharge, Denies neck fullness/pressure, Denies neck lump, Denies nose pain, Denies odynophagia, Denies post-nasal drip, Denies sinus pain, Denies sinus pressure, Denies swelling in mouth, Denies swelling in throat, Denies sore throat, Denies vertigo, Denies voice changes Cardiovascular: Reports irregular heart beat, Reports palpitations, Reports rapid heart beat, Reports shortness of breath Respiratory: Reports dyspnea, Reports pain on inspiration Gastrointestinal: Reports abdominal pain, Reports bloating, Reports loss of appetite Genitourinary: Denies as per HPI, Denies abnormal vaginal bleeding, Denies decreased libido, Denies difficulty conceiving, Denies difficulty voiding, Denies dysmenorrhea, Denies dyspareunia, Denies dysuria, Denies flank pain, Denies genital sores, Denies hematuria, Denies hot flashes, Denies incomplete emptying, Denies kidney stones, Denies menorrhagia, Denies mixed incontinence, Denies nocturia, Denies pelvic pain, Denies post void dribbling, Denies , Denies prolapse symptoms, Denies stress incontinence, Denies urge incontinence, Denies urgency, Denies urinary frequency, Denies vaginal discharge, Denies vaginal dryness, Denies vaginal itching, Denies vaginal odor Menstruation: Denies as per HPI, Denies amenorrhea, Denies amenorrhea on BC, Denies currently menstrual, Denies cycle < 21 days, Denies cycle > 35 days, Denies cycle variable, Denies menses 1-7 days, Denies menses 8 or > days, Denies menses variable, Denies period heavy, Denies period light, Denies period normal, Denies period spotting, Denies post hysterectomy, Denies postmenopausal, Denies premenarcheal Musculoskeletal: Reports gait dysfunction, Reports myalgias Integumentary: Denies as per HPI, Denies acne, Denies boils, Denies brittle nails, Denies change in hair/nails, Denies color changes, Denies darkening of s kin, Denies depigmentation, Denies dryness, Denies foot/leg ulcers, Denies growths, Denies hirsutism, Denies lesions, Denies onychomycosis, Denies pruritus, Denies rash, Denies sores, Denies striae, Denies unusual bruising, Denies wounds Neurological: Reports weakness Psychiatric: Reports sleep disturbances Endocrine: Reports fatigue Hematologic/Lymphatic: Denies as per HPI, Denies easy bleeding, Denies easy bruising, Denies lymphadenopathy, Denies lymphedema, Denies thrombophilia Allergic/Immunologic: Denies as per HPI, Denies allergic rhinitis, Denies anaphylaxis, Denies angioedema, Denies gluten intolerance, Denies persistent infections, Denies seasonal allergies, Denies urticaria, Denies wheezing 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 Last Myocardial Infarction Date:: 2000 History of Any Multi-Drug Resistant Organisms: None Reported Additional Past Surgical History / Comment(s): tonsils, ovaris, biopsy, Brain sx Past Anesthesia/Blood Transfusion Reactions: No Reported Reaction Past Psychological History: No Psychological Hx Reported Smoking Status: Former smoker Past Alcohol Use History: None Reported Additional Past Alcohol Use History / Comment(s): quit smoking March 2020 Past Drug Use History: None Reported - Past Family History Father Family Medical History: Myocardial Infarction (MS), Renal Disease Mother Family Medical History: Diabetes Mellitus Medications and Allergies Home Medications Medication Instructions Recorded Confirmed Type Atorvastatin [Lipitor] 40 mg PO HS 03/27/20 04/20/20 History Lisinopril-Hctz 20-25 mg 1 tab PO DAILY 03/27/20 04/20/20 History [Zestoretic 20-25] Albuterol Sulfate [Albuterol 2 puff INHALATION RT-Q4H PRN 04/02/20 04/20/20 History Sulfate Hfa] Ondansetron HCl [Zofran] 4 mg PO Q4H PRN 04/02/20 04/20/20 History Dexamethasone 4 mg PO TID #90 tablet 04/04/20 04/20/20 Rx OLANZapine [ZyPREXA] 2.5 mg PO HS #30 tablet 04/04/20 04/20/20 Rx Omeprazole [PriLOSEC] 40 mg PO DAILY #30 cap 04/04/20 04/20/20 Rx Benzonatate [Tessalon Perles] 100 mg PO TID PRN 04/17/20 04/20/20 History Allergies Allergy/AdvReac Type Severity Reaction Status Date / Time methylate Allergy Unknown Uncoded 04/20/20 17:15 Physical Exam Vitals: Vital Signs Temp Pulse Pulse Resp Pulse Ox 04/21/20 07:00 76 11 L 96 04/21/20 05:55 60 10 L 04/21/20 04:48 68 14 04/21/20 03:21 12 04/21/20 03:20 98.0 F 72 12 96 04/21/20 01:44 16 04/21/20 00:15 82 16 89 L 04/20/20 23:18 14 04/20/20 19:40 16 04/20/20 19:15 84 14 100 Intake and Output 04/20/20 04/21/20 04/21/20 22:59 06:59 14:59 Output Total 1400 100 Balance -1400 -100 Output: Urine 1400 100 Other: Voiding Method Indwelling Catheter Weight 62.5 kg GENERAL: The patient is alert and oriented x3, in acute respiratory distress. Well developed, well nourished. HEENT: Pupils are round and equally reacting to light. EOMI. No scleral icterus. No conjunctival pallor. Normocephalic, atraumatic. No pharyngeal erythema. No thyromegaly. Oral mucous membranes are dry CARDIOVASCULAR: Irregularly irregular, A. fib with RVR PULMONARY: Diminished breath sounds bilaterally with scattered rhonchi noted ABDOMEN: Soft, extremely tender upon palpation of the right and left upper quadrant, nondistended, normoactive bowel sounds. No palpable organomegaly. MUSCULOSKELETAL: No joint swelling or deformity. EXTREMITIES: No cyanosis, clubbing, or pedal edema. NEUROLOGICAL: Gross neurological examination did not reveal any focal deficits. Diffusely weak SKIN: No rashes. Thrombosis Risk Factor Assmnt - Choose All That Apply Any of the Below Risk Factors Present?: Yes Each Factor Represents 1 point: Age 41-60 years Other Risk Factors: Yes Each Risk Factor Represents 2 Points: Malignancy Thrombosis Risk Factor Assessment Total Risk Factor Score: 3 Thrombosis Risk Factor Assessment Level: Moderate Risk Assessment and Plan Assessment: -Breast cancer with metastases to brain -New onset atrial fibrillation probably contributing to her shortness of breath -Low possibility of PE -Hyponatremia: Secondary to hydrocodone -Hyperkalemia secondary to lisinopril -Hypertension patient is presently hypotensive -Mildly elevated troponins probably secondary to atrial fibrillation -Leukocytosis reactive in nature -Hyperlipidemia -No code, no CPR, no vent Plan: Patient has met with [facility] would like to continue with hospice care comfort measures only. Patient made GIP due to respiratory distress, continued clinical decline, and continued arrhythmia. Family was at the bedside when [facility] visited the patient and arrangements were made. Patient is to continue with comfort care measures only. Will continue to monitor closely. Further recommendations to follow.
[2020-04-21 10:36] VITALS: TEMP 98
[2020-04-21 15:45] VITALS: PULSE 88; RESP 16
[2020-04-21] MEDS: MORPHINE SULFATE 4 MG/ML SYRINGE IVP SCH ×2 (16:08→21:39)
== END 2020-04-21 22:10 | disposition expired | DRG 951 ==
LOC: 4SSUR 17:00
PROVIDERS: ADMIT Internal Medicine; ATTEND Internal Medicine
DX: Z51.5 Encounter for palliative care (principal); C79.31 Secondary malignant neoplasm of brain; C78.00 Secondary malignant neoplasm of unspecified lung; E87.1 Hypo-osmolality and hyponatremia; N17.9 Acute kidney failure, unspecified; C50.919 Malignant neoplasm of unspecified site of unspecified female breast; D72.829 Elevated white blood cell count, unspecified; E78.5 Hyperlipidemia, unspecified; E87.5 Hyperkalemia; T46.4X5A Adverse effect of angiotensin-converting-enzyme inhibitors, initial encounter; T40.2X5A Adverse effect of other opioids, initial encounter; I10 Essential (primary) hypertension; I25.2 Old myocardial infarction; I48.91 Unspecified atrial fibrillation; Z66 Do not resuscitate; Z79.899 Other long term (current) drug therapy; Z82.49 Family history of ischemic heart disease and other diseases of the circulatory system; Z83.3 Family history of diabetes mellitus; Z87.891 Personal history of nicotine dependence; Z88.8 Allergy status to other drugs, medicaments and biological substances; I08.1 Rheumatic disorders of both mitral and tricuspid valves; I95.9 Hypotension, unspecified; R79.89 Other specified abnormal findings of blood chemistry; R26.9 Unspecified abnormalities of gait and mobility